=== PATIENT | female | born 1990 | race Caucasian/White ===

== ENCOUNTER 2019-12-11 18:35 | Emergency (ER) | payer OTHER ==
[2019-12-11] MEDS ORDERED: PANTOPRAZOLE 40 MG/10 ML VIAL IVP STA (18:54)
[2019-12-11] MEDS ORDERED: ONDANSETRON 4 MG/2 ML VIAL IVP STA (18:54)
[2019-12-11] MEDS ORDERED: SODIUM CHLORIDE 0.9% 1,000 ML IV STA (18:54)
--- NOTE | 2019-12-11 18:58 | ED ---
General Adult HPI - General Chief complaint: GI Bleed Stated complaint: Vomiting blood Time Seen by Provider: 12/11/19 18:45 Source: patient Mode of arrival: ambulatory Limitations: no limitations - History of Present Illness Initial comments: 28-year-old female patient with past medical history significant for alcohol abuse and acid reflux presents to the emergency department today for evaluation of possible upper GI bleed. Patient states that for the last 3 days she has been having frequent vomiting. States initially she was vomiting bright red b lood which turned to coffee-ground emesis yesterday. Patient states today she has vomited but is only been yellow with no bloody emesis present. States she is having some mid epigastric discomfort. Denies any hematochezia or melena. Patient has been taking Protonix. Patient states that she did have an upper GI endoscopy a couple of years ago which showed no abnormalities. She denies any fever or chills. Denies any diarrhea. She denies taking any anticoagulants or antiplatelet medications. Patient denies any recent rash, cough, back pain, numbness, tingling, dizziness, weakness, hematuria, dysuria, urinary urgency, urinary frequency, headache, visual changes, or any other complaints. - Related Data Previous Rx's Medication Instructions Recorded Ondansetron [Zofran ODT] 4 mg PO Q8HR PRN #20 tab 12/11/19 Allergies Allergy/AdvReac Type Severity Reaction Status Date / Time No Known Allergies Allergy Verified 12/11/19 18:40 Review of Systems ROS Statement: Those systems with pertinent positive or pertinent negative responses have been documented in the HPI. ROS Other: All systems not noted in ROS Statement are negative. Past Medical History Past Medical History: GERD/Reflux History of Any Multi-Drug Resistant Organisms: None Reported Past Surgical History: Section Past Psychological History: Anxiety, Depression Smoking Status: Current every day smoker Past Alcohol Use History: Abuse, Daily, Heavy Past Drug Use History: Marijuana General Exam Limitations: no limitations General appearance: alert, in no apparent distress, other (Physical well- developed, well-nourished adult female patient in no acute distress. Vital signs upon presentation are temperature 98.3F, pulse 87, respirations 18, blood pressure 133/90, pulse ox 98% on room air) Eye exam: Present: normal appearance, PERRL, EOMI. Absent: scleral icterus, conjunctival injection, periorbital swelling ENT exam: Present: normal exam, normal oropharynx, mucous membranes moist Respiratory exam: Present: normal lung sounds bilaterally. Absent: respiratory distress, wheezes, rales, rhonchi, stridor Cardiovascular Exam: Present: regular rate, normal rhythm, normal heart sounds. Absent: systolic murmur, diastolic murmur, rubs, gallop, clicks GI/Abdominal exam: Present: soft, tenderness (Left lower quadrant tenderness), normal bowel sounds. Absent: distended, guarding, rebound, rigid Neurological exam: Present: alert, oriented X3, CN II-XII intact Psychiatric exam: Present: normal affect, normal mood Skin exam: Present: warm, dry, intact, normal color. Absent: rash Course Vital Signs 12/11/19 12/11/19 18:40 20:00 Temperature 98.3 F 99.9 F H Pulse Rate 87 88 Respiratory 18 16 Rate Blood Pressure 133/90 124/95 O2 Sat by Pulse 98 Oximetry Medical Decision Making - Medical Decision Making 28-year-old female patient presents to the emergency department today for evaluation of vomiting blood. Physical examination reveals mild midepigastric tenderness. Remainder of abdomen is nontender. Labs reviewed and are unremarkable. Blood cell count are normal. Patient reports that today she has only had bilious emesis with no presence of coffee grounds or bright red blood. Denies any dizziness or weakness. Presence of blood over the last 2 days is most likely from a small tear from retching. We did discuss continuing her home protonix. She is instructed to follow-up with the GI specialist for further evaluation as soon as possible for upper GI endoscopy. Return parameters were discussed in detail. She verbalizes understanding and agrees with this plan - Lab Data Result diagrams: 12/11/19 19:00 12/11/19 19:00 Lab Results 12/11/19 12/11/19 12/11/19 Range/Units 18:45 19:00 19:00 WBC 12.2 H (3.8-10.6) k/uL RBC 4.88 (3.80-5.40) m/uL Hgb 15.1 (11.4-16.0) gm/dL Hct 45.6 (34.0-46.0) % MCV 93.4 (80.0-100.0) fL MCH 30.9 (25.0-35.0) pg MCHC 33.1 (31.0-37.0) g/dL RDW 15.0 (11.5-15.5) % Plt Count 214 (150-450) k/uL Neutrophils % 70 % Lymphocytes % 24 % Monocytes % 3 % Eosinophils % 1 % Basophils % 0 % Neutrophils # 8.5 H (1.3-7.7) k/uL Lymphocytes # 3.0 (1.0-4.8) k/uL Monocytes # 0.4 (0-1.0) k/uL Eosinophils # 0.1 (0-0.7) k/uL Basophils # 0.0 (0-0.2) k/uL PT 11.4 (9.0-12.0) sec INR 1.1 (<1.2) APTT 26.3 (22.0-30.0) sec Sodium (137-145) mmol/L Potassium (3.5-5.1) mmol/L Chloride (98-107) mmol/L Carbon Dioxide (22-30) mmol/L Anion Gap mmol/L BUN (7-17) mg/dL Creatinine (0.52-1.04) mg/dL Est GFR (CKD-EPI)AfAm (>60 ml/min/1.73 sqM) Est GFR (CKD-EPI)NonAf (>60 ml/min/1.73 sqM) Glucose (74-99) mg/dL Calcium (8.4-10.2) mg/dL Total Bilirubin (0.2-1.3) mg/dL AST (14-36) U/L ALT (4-34) U/L Alkaline Phosphatase (38-126) U/L Troponin I (0.000-0.034) ng/mL Total Protein (6.3-8.2) g/dL Albumin (3.5-5.0) g/dL Lipase (23-300) U/L Urine HCG, Qual Not Detected (Not Detectd) 12/11/19 12/11/19 Range/Units 19:00 19:00 WBC (3.8-10.6) k/uL RBC (3.80-5.40) m/uL Hgb (11.4-16.0) gm/dL Hct (34.0-46.0) % MCV (80.0-100.0) fL MCH (25.0-35.0) pg MCHC (31.0-37.0) g/dL RDW (11.5-15.5) % Plt Count (150-450) k/uL Neutrophils % % Lymphocytes % % Monocytes % % Eosinophils % % Basophils % % Neutrophils # (1.3-7.7) k/uL Lymphocytes # (1.0-4.8) k/uL Monocytes # (0-1.0) k/uL Eosinophils # (0-0.7) k/uL Basophils # (0-0.2) k/uL PT (9.0-12.0) sec INR (<1.2) APTT (22.0-30.0) sec Sodium 134 L (137-145) mmol/L Potassium 3.9 (3.5-5.1) mmol/L Chloride 100 (98-107) mmol/L Carbon Dioxide 25 (22-30) mmol/L Anion Gap 9 mmol/L BUN 16 (7-17) mg/dL Creatinine 0.57 (0.52-1.04) mg/dL Est GFR (CKD-EPI)AfAm >90 (>60 ml/min/1.73 sqM) Est GFR (CKD-EPI)NonAf >90 (>60 ml/min/1.73 sqM) Glucose 86 (74-99) mg/dL Calcium 9.0 (8.4-10.2) mg/dL Total Bilirubin 1.1 (0.2-1.3) mg/dL AST 27 (14-36) U/L ALT 25 (4-34) U/L Alkaline Phosphatase 83 (38-126) U/L Troponin I <0.012 (0.000-0.034) ng/mL Total Protein 7.3 (6.3-8.2) g/dL Albumin 4.3 (3.5-5.0) g/dL Lipase 161 (23-300) U/L Urine HCG, Qual (Not Detectd) Disposition Clinical Impression: Upper GI bleed Disposition: HOME SELF-CARE Condition: Good Instructions (If sedation given, give patient instructions): Gastrointestinal Bleeding (ED) Additional Instructions: Continue taking your Protonix. Take Zofran as needed for nausea and vomiting. Follow-up with the GI specialist for further evaluation and upper endoscopy scope. Return to the emergency department immediately for any new, worsening, or concerning symptoms. Prescriptions: Ondansetron [Zofran ODT] 4 mg PO Q8HR PRN #20 tab PRN Reason: Nausea Is patient prescribed a controlled substance at d/c from ED?: No Referrals: None,Stated [Primary Care Provider] - 1-2 days Time of Disposition: 20:06
[2019-12-11 19:19] LABS: Basophils % (A) 0 %; Eosinophils # (A) 0.1 k/uL (0-0.7); Eosinophils % (A) 1 %; HCT 45.6 % (34.0-46.0); HGB 15.1 gm/dL (11.4-16.0); Lymphocytes % (A) 24 %; MCH 30.9 pg (25.0-35.0); MCHC 33.1 g/dL (31.0-37.0); MCV 93.4 fL (80.0-100.0); Mean Platelet Volume 7.2; Monocytes # (A) 0.4 k/uL (0-1.0); Monocytes % (A) 3 %; Neutrophils # (A) 8.5 k/uL (1.3-7.7); Neutrophils % (A) 70 %; Platelet Count 214 k/uL (150-450); RBC 4.88 m/uL (3.80-5.40); WBC 12.2 k/uL (3.8-10.6)
[2019-12-11 19:28] LABS: ALT 25 U/L (4-34); AST 27 U/L (14-36); African American GFR (CKD) >90 (>60 ml/min/1.73 sqM); Albumin 4.3 g/dL (3.5-5.0); Alkaline Phosphatase 83 U/L (38-126); Anion Gap 9 mmol/L; Blood Urea Nitrogen 16 mg/dL (7-17); Carbon Dioxide 25 mmol/L (22-30); Chloride 100 mmol/L (98-107); Glucose 86 mg/dL (74-99); INR 1.1 (<1.2); Non-African American GFR(CKD) >90 (>60 ml/min/1.73 sqM); Partial Thromboplastin Time 26.3 sec (22.0-30.0); Potassium 3.9 mmol/L (3.5-5.1); Prothrombin Time 11.4 sec (9.0-12.0); Sodium 134 mmol/L (137-145); Total Bilirubin 1.1 mg/dL (0.2-1.3); Total Protein 7.3 g/dL (6.3-8.2)
--- NOTE | 2019-12-11 19:56 | XR ---
EXAMINATION TYPE: XR KUB DATE OF EXAM: 12/11/2019 COMPARISON: NONE HISTORY: Pain TECHNIQUE: 2 views FINDINGS: 2 views upright show no sign of intestinal obstruction or pneumoperitoneum. Fecal pattern i s normal. Lung bases are clear. There are no pathologic calcifications. IMPRESSION: Nonacute abdomen.
[2019-12-11 20:14] VITALS: BP 124/95; PULSE 88; RESP 16; TEMP 99.9
== END 2019-12-11 20:39 | disposition home or self-care (01) ==
LOC: EC 18:35
DX: K92.2 Gastrointestinal hemorrhage, unspecified (principal); R11.14 Bilious vomiting; K21.9 Gastro-esophageal reflux disease without esophagitis; F17.200 Nicotine dependence, unspecified, uncomplicated; Z79.899 Other long term (current) drug therapy
CPT/HCPCS: 36415; 80053; 83690; 84484; 85025; 85610; 85730; 81025; 74018; 99285; 96374; 96375; 96361; J2405; C9113

== ENCOUNTER 2020-10-09 12:18 | Emergency (ER) | payer OTHER ==
[2020-10-09 12:26] VITALS: TEMP 97.6
[2020-10-09] MEDS ORDERED: ACETAMINOPHEN TAB 500 MG TAB PO STA (12:36)
[2020-10-09] MEDS ORDERED: DIPH,PERTUS(ACELL)TETVAC-LF 0.5 ML VIAL IM ONE (12:36)
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
[2020-10-09 16:41] VITALS: BP 122/74; PULSE 72; RESP 18
== END 2020-10-09 16:41 | disposition home or self-care (01) ==
LOC: EC 12:18
DX: S60.512A Abrasion of left hand, initial encounter (principal); R91.1 Solitary pulmonary nodule; K21.9 Gastro-esophageal reflux disease without esophagitis; F41.9 Anxiety disorder, unspecified; F32.9 Major depressive disorder, single episode, unspecified; Z23 Encounter for immunization; F17.200 Nicotine dependence, unspecified, uncomplicated; Z79.899 Other long term (current) drug therapy; V44.5XXA Car driver injured in collision with heavy transport vehicle or bus in traffic accident, initial encounter; Y93.89 Activity, other specified; Y92.410 Unspecified street and highway as the place of occurrence of the external cause
CPT/HCPCS: 70450; 71045; 72125; 72170; 82075; 90471; 90715; 99284

== ENCOUNTER 2022-07-26 12:30 | Emergency (ER) | payer OTHER ==
[2022-07-26 13:05] VITALS: RESP 18; TEMP 98.1
[2022-07-26 13:36] LABS: Appearance,Urine Cloudy (Clear); Bilirubin,Urine Negative (Negative); Blood,Urine Large (Negative); Color,Urine Yellow; Glucose,Urine (UA) Negative (Negative); Ketones,Urine Negative (Negative); Leukocyte Esterase,Urine Large (Negative); Mucus,Urine Many /hpf; Nitrite,Urine Negative (Negative); Protein,Urine Trace (Negative); RBC,Urine 2 /hpf (0-5); Specific Gravity,Urine 1.017 (1.001-1.035); Squamous Epithelial Cell,Urine 13 /hpf (0-4); Urobilinogen,Urine <2.0 mg/dL (<2.0); WBC,Urine 21 /hpf (0-5)
--- NOTE | 2022-07-26 16:26 | ED ---
Female Urogenital HPI - General Chief complaint: Vaginal Bleeding Stated complaint: newly preg, bleeding/cramping Time Seen by Provider: 07/26/22 15:25 Source: patient, RN notes reviewed Mode of arrival: ambulatory Limitations: no limitations - History of Present Illness Initial comments: This is a 31-year-old female who presents to the emergency department for vaginal bleeding and cramping. Symptoms started 1-2 days ago. Believes that she is approximately 7 weeks and she is . She has not yet established with an fire apparatus sprinkler inspector due to the wait in this area, however her primary care provider did send an official referral to Dr. Kendall a couple of days ago in an attempt to speed up this process. States that she had a miscarriage several years ago at around 7 weeks and after that she did have a successful , and that child is now 4 years old. Denies any nausea or vomiting. Denies any fevers, chills, sore throat, cough, dyspnea, chest pain, palpitations, nausea, vomiting, diarrhea, back pain, or headaches. MD Complaint: vaginal bleeding, pelvic pain Onset/Timin -: days(s) Last Menstrual Period: 05/29/22 Patient : Yes Number of weeks : 7 - Related Data Home Medications Medication Instructions Recorded Confirmed Escitalopram [Lexapro] 20 mg PO DAILY 10/09/20 10/09/20 Pantoprazole Sodium [Protonix] 40 mg PO DAILY 10/09/20 10/09/20 Previous Rx's Medication Instructions Recorded Cephalexin [Keflex] 500 mg PO Q8HR 5 Days #15 cap 07/26/22 Doxylamine Succinate/Vit B6 1 each PO Q6H PRN #20 tab 07/26/22 [Doxylamine-Pyridoxine 10-10 mg] Ondansetron Odt [Zofran Odt] 4 mg PO Q8HR PRN #20 tab 07/26/22 Allergies Allergy/AdvReac Type Severity Reaction Status Date / Time No Known Allergies Allergy Verified 07/26/22 13:04 Review of Systems ROS Statement: Those systems with pertinent positive or pertinent negative responses have been documented in the HPI. ROS Other: All systems not noted in ROS Statement are negative. Past Medical History Past Medical History: GERD/Reflux History of Any Multi-Drug Resistant Organisms: None Reported Past Surgical History: Appendectomy, Section Past Psychological History: Anxiety, Depression Smoking Status: Current every day smoker, Vaper Past Alcohol Use History: None Reported Past Drug Use History: Marijuana General Exam Limitations: no limitations General appearance: alert, in no apparent distress Head exam: Present: atraumatic, normocephalic, normal inspection Respiratory exam: Present: normal lung sounds bilaterally. Absent: respiratory distress, wheezes, rales, rhonchi, stridor Cardiovascular Exam: Present: regular rate, normal rhythm, normal heart sounds. Absent: systolic murmur, diastolic murmur, rubs, gallop, clicks GI/Abdominal exam: Present: normal bowel sounds Neurological exam: Present: alert, oriented X3, CN II-XII intact Psychiatric exam: Present: normal affect, normal mood Skin exam: Present: warm, dry, intact, normal color. Absent: rash Course Vital Signs 07/26/22 07/26/22 12:59 18:01 Temperature 98.1 F Pulse Rate 105 H 98 Respiratory 18 18 Rate Blood Pressure 107/68 110/70 O2 Sat by Pulse 99 99 Oximetry Medical Decision Making - Medical Decision Making This is a 31-year-old female who presents to the emergency department for vaginal bleeding and pelvic pain. Lab work was nonactionable. Obstetrics ul trasound obtained revealing an anechoic intrauterine cystic structure without evidence for yolk sac or pole. This may be related to an early gestational sac, however ectopic and abnormal intrauterine cannot be ruled out. She is Rh+ and no RhoGAM is indicated. Given that the patient does have some white blood cells in her urine, she'll be treated for bacteriuria. Prescription for 5 day course of Keflex provided. She is also complaining of morning sickness, and requested nausea medication. Prescription for generic Diclegis provided, advised that this can be expensive, however it is found to be one of the safer medications for nausea in . She was also given a prescription for Zofran, advised that this is a category B medication, and that there are no direct links to harm, however additional testing is needed. Patient expresses understanding and wishes to proceed with the medication. Advised that she can brass pickler both prescriptions, however if the Diclegis is too expensive, she can just brass pickler the Zofran. Advised she contact Dr. Kendall's office in the morning to evaluate the status of her referral. Reminded her to begin taking a vitamin and to only take Tylenol for any pain, avoiding [id number] anti-inflammatories such as ibuprofen. Return precautions reviewed in depth, the patient is instructed to return to the emergency department with any new, worsening, or concerning symptoms. Patient verbalized understanding. This case was discussed in detail with the attending ED physician. Presentation, findings, and treatment plan discussed in detail as well. - Lab Data Result diagrams: 07/26/22 16:55 07/26/22 16:55 Lab Results 07/26/22 07/26/22 07/26/22 Range/Units 13:13 16:53 16:55 WBC 9.8 (3.8-10.6) k/uL RBC 4.95 (3.80-5.40) m/uL Hgb 15.2 (11.4-16.0) gm/dL Hct 44.6 (34.0-46.0) % MCV 90.2 (80.0-100.0) fL MCH 30.6 (25.0-35.0) pg MCHC 34.0 (31.0-37.0) g/dL RDW 12.6 (11.5-15.5) % Plt Count 208 (150-450) k/uL MPV 7.3 Neutrophils % 73 % Lymphocytes % 21 % Monocytes % 3 % Eosinophils % 2 % Basophils % 0 % Neutrophils # 7.2 (1.3-7.7) k/uL Lymphocytes # 2.1 (1.0-4.8) k/uL Monocytes # 0.3 (0-1.0) k/uL Eosinophils # 0.2 (0-0.7) k/uL Basophils # 0.0 (0-0.2) k/uL Sodium (137-145) mmol/L Potassium (3.5-5.1) mmol/L Chloride (98-107) mmol/L Carbon Dioxide (22-30) mmol/L Anion Gap mmol/L BUN (7-17) mg/dL Creatinine (0.52-1.04) mg/dL Est GFR (CKD-EPI)AfAm (>60 ml/min/1.73 sqM) Est GFR (CKD-EPI)NonAf (>60 ml/min/1.73 sqM) Glucose (74-99) mg/dL Calcium (8.4-10.2) mg/dL Total Bilirubin (0.2-1.3) mg/dL AST (14-36) U/L ALT (4-34) U/L Alkaline Phosphatase (38-126) U/L Total Protein (6.3-8.2) g/dL Albumin (3.5-5.0) g/dL HCG, Quant mIU/mL Urine Color Yellow Urine Appearance Cloudy H (Clear) Urine pH 6.0 (5.0-8.0) Ur Specific [place] 1.017 (1.001-1.035) Urine Protein Trace H (Negative) Urine Glucose (UA) Negative (Negative) Urine Ketones Negative (Negative) Urine Blood Large H (Negative) Urine Nitrite Negative (Negative) Urine Bilirubin Negative (Negative) Urine Urobilinogen <2.0 (<2.0) mg/dL Ur Leukocyte Esterase Large H (Negative) Urine RBC 2 (0-5) /hpf Urine WBC 21 H (0-5) /hpf Ur Squamous Epith Cells 13 H (0-4) /hpf Urine Mucus Many H (None) /hpf Blood Type A Positive Blood Type Recheck No Previous Record Bld Type Recheck Status [facility] ONLY 07/26/22 Range/Units 16:55 WBC (3.8-10.6) k/uL RBC (3.80-5.40) m/uL Hgb (11.4-16.0) gm/dL Hct (34.0-46.0) % MCV (80.0-100.0) fL MCH (25.0-35.0) pg MCHC (31.0-37.0) g/dL RDW (11.5-15.5) % Plt Count (150-450) k/uL MPV Neutrophils % % Lymphocytes % % Monocytes % % Eosinophils % % Basophils % % Neutrophils # (1.3-7.7) k/uL Lymphocytes # (1.0-4.8) k/uL Monocytes # (0-1.0) k/uL Eosinophils # (0-0.7) k/uL Basophils # (0-0.2) k/uL Sodium 139 (137-145) mmol/L Potassium 3.9 (3.5-5.1) mmol/L Chloride 105 (98-107) mmol/L Carbon Dioxide 24 (22-30) mmol/L Anion Gap 10 mmol/L BUN 7 (7-17) mg/dL Creatinine 0.52 (0.52-1.04) mg/dL Est GFR (CKD-EPI)AfAm >90 (>60 ml/min/1.73 sqM) Est GFR (CKD-EPI)NonAf >90 (>60 ml/min/1.73 sqM) Glucose 84 (74-99) mg/dL Calcium 9.2 (8.4-10.2) mg/dL Total Bilirubin 0.7 (0.2-1.3) mg/dL AST 21 (14-36) U/L ALT 20 (4-34) U/L Alkaline Phosphatase 76 (38-126) U/L Total Protein 6.7 (6.3-8.2) g/dL Albumin 4.2 (3.5-5.0) g/dL HCG, Quant 8272.4 mIU/mL Urine Color Urine Appearance (Clear) Urine pH (5.0-8.0) Ur Specific [place] (1.001-1.035) Urine Protein (Negative) Urine Glucose (UA) (Negative) Urine Ketones (Negative) Urine Blood (Negative) Urine Nitrite (Negative) Urine Bilirubin (Negative) Urine Urobilinogen (<2.0) mg/dL Ur Leukocyte Esterase (Negative) Urine RBC (0-5) /hpf Urine WBC (0-5) /hpf Ur Squamous Epith Cells (0-4) /hpf Urine Mucus (None) /hpf Blood Type Blood Type Recheck Bld Type Recheck Status - Radiology Data Radiology results: report reviewed, image reviewed Disposition Clinical Impression: Vaginal bleeding during Disposition: HOME SELF-CARE Instructions (If sedation given, give patient instructions): Nausea and Vomiting in (ED), at 7 to 10 Weeks (ED) Additional Instructions: Return to the emergency department with any new, worsening, or concerning symptoms. Take the Keflex as prescribed for 5 days. You can brass pickler both the Diclegis (Doxylamine succinate/pyridoxine) and Zofran, however if the Diclegis is too expensive, just pickup the Zofran. These can be used as needed for nausea and vomiting. Make sure you're taking a vitamin and only take Tylenol for any pain, do not take ibuprofen or other faop-ehd-vireolk anti- inflammatories. Contact Dr. Kendall's office to follow-up on the referral and become established as soon as possible. Follow up with your primary care provider in 1-2 days. Prescriptions: Doxylamine Succinate/Vit B6 [Doxylamine-Pyridoxine 10-10 mg] 1 each PO Q6H PRN #20 tab PRN Reason: Nausea And Vomiting Cephalexin [Keflex] 500 mg PO Q8HR 5 Days #15 cap Ondansetron Odt [Zofran Odt] 4 mg PO Q8HR PRN #20 tab PRN Reason: Nausea And Vomiting Is patient prescribed a controlled substance at d/c from ED?: No Referrals: Alistair Charles MD [Primary Care Provider] - 1-2 days
--- NOTE | 2022-07-26 17:10 | US ---
EXAMINATION TYPE: Transabdominal DATE OF EXAM: 07/26/2022 4:46 PM COMPARISON: NONE CLINICAL HISTORY: Abdominal pain and cramping in . Abdominal pain and vaginal bleeding. G3 P 1 A1. Hx 1 miscarriage and 1 C section. EXAM PERFORMED: Transvaginal (TV) and Transabdominal (TA) EXAM MEASUREMENTS: GESTATIONAL AGE / DATING Physician Established: Not yet established Dates by LMP: (8 weeks/1 day) EDC: 03/06/2023 Dates by First Scan: This is first scan Dates by Current Scan for: ( 6 weeks/0 days) EDC: 03/21/2023 by gestational sac. MATERNAL ANATOMY Uterus: 9.5 x 5.3 x 4.2 cm. Anteverted. Heterogeneous. Right Ovary: Seen TA only. Anechoic area seen: 1.6 x 1.4 x 1.0 cm. Left Ovary: Not seen Post CDS / Adnexa: Fluid seen in CDS. Presence of free fluid: Yes in cul de sac. Presence of corpus luteal cyst: Possibly within the right ovary, anechoic area seen as mentioned abov e. Presence of subchorionic bleed: Hypoechoic area seen superior to gestational sac: 1.1 x 0.8 x 0.4 cm. Hypoechoic area seen inferior to gestational sac: 0.6 x 1.4 x 1.0 cm. GESTATION / SURVEY MSD: 1.21 cm (6 weeks/0 days) IUP: Gestational sac seen within the mid uterus at this time. Date of LMP: 05/30/2022 Beta HcG (if available): Not available IMPRESSION: Anechoic intrauterine cystic structure without evidence for yolk sac or pole at this time. This is thought to represent an early gestational sac with a positive beta hCG, however ectopic and abnormal intrauterine cannot be ruled out based on this exam alone. Follow-up with pel dominick ultrasound in 7-10 days and serial beta-hCG studies are recommended to en sure further developmen t of the fetus. .
[2022-07-26 17:11] LABS: Basophils % (A) 0 %; Eosinophils # (A) 0.2 k/uL (0-0.7); Eosinophils % (A) 2 %; HCT 44.6 % (34.0-46.0); HGB 15.2 gm/dL (11.4-16.0); Lymphocytes # (A) 2.1 k/uL (1.0-4.8); Lymphocytes % (A) 21 %; MCH 30.6 pg (25.0-35.0); MCV 90.2 fL (80.0-100.0); Mean Platelet Volume 7.3; Monocytes # (A) 0.3 k/uL (0-1.0); Monocytes % (A) 3 %; Neutrophils # (A) 7.2 k/uL (1.3-7.7); Neutrophils % (A) 73 %; Platelet Count 208 k/uL (150-450); RBC 4.95 m/uL (3.80-5.40); RDW 12.6 % (11.5-15.5); WBC 9.8 k/uL (3.8-10.6)
[2022-07-26 17:26] LABS: ALT 20 U/L (4-34); AST 21 U/L (14-36); African American GFR (CKD) >90 (>60 ml/min/1.73 sqM); Albumin 4.2 g/dL (3.5-5.0); Alkaline Phosphatase 76 U/L (38-126); Anion Gap 10 mmol/L; Blood Urea Nitrogen 7 mg/dL (7-17); Calcium 9.2 mg/dL (8.4-10.2); Carbon Dioxide 24 mmol/L (22-30); Chloride 105 mmol/L (98-107); Glucose 84 mg/dL (74-99); Non-African American GFR(CKD) >90 (>60 ml/min/1.73 sqM); Potassium 3.9 mmol/L (3.5-5.1); Sodium 139 mmol/L (137-145); Total Bilirubin 0.7 mg/dL (0.2-1.3); Total Protein 6.7 g/dL (6.3-8.2)
[2022-07-26 17:43] LABS: HCG,Quantitative Serum 8272.4 mIU/mL
[2022-07-26 18:05] VITALS: BP 110/70; PULSE 98
== END 2022-07-26 18:05 | disposition home or self-care (01) ==
LOC: EC 12:30
DX: O46.91 Antepartum hemorrhage, unspecified, first trimester (principal); Z3A.01 Less than 8 weeks gestation of pregnancy; K21.9 Gastro-esophageal reflux disease without esophagitis; F17.200 Nicotine dependence, unspecified, uncomplicated; F12.90 Cannabis use, unspecified, uncomplicated; F41.9 Anxiety disorder, unspecified; F32.A Depression, unspecified; Z79.83 Long term (current) use of bisphosphonates; Z79.899 Other long term (current) drug therapy
CPT/HCPCS: 36415; 76801; 76817; 80053; 81001; 84702; 85025; 86900; 86901; 87086; 99284

== ENCOUNTER 2022-07-27 19:35 | Observation (INO) | payer OTHER ==
[2022-07-27] MEDS ORDERED: SODIUM CHLORIDE 0.9% 1,000 ML IV STA (19:45)
[2022-07-27] MEDS ORDERED: MORPHINE SULFATE 4 MG/ML SYRINGE IV STA (19:53)
--- NOTE | 2022-07-27 19:56 | ED ---
General Adult HPI - General Chief complaint: Vaginal Bleeding Stated complaint: Vaginal Bleeding Time Seen by Provider: 07/27/22 19:46 Source: EMS Mode of arrival: EMS Limitations: no limitations - History of Present Illness Initial comments: Dictation was produced using [employer] dictation software. please excuse any grammatical, word or spelling errors. Chief Complaint: 31-year-old female presents to emergency room for pelvic pain she is allegedly 6 weeks History of Present Illness: She's 31-year-old female she is allegedly 6 weeks . She is here today for 1 day of severe pelvic pain. Patient was seen here in emergency department yesterday for vaginal bleeding. At that time she had a beta Quant of approximately 8000. She had a ultrasound that showed anechoic intrauterine cystic structure without evidence for yolks sac or pole. Patient states that her pain is severe rated a 12 out of 10. Nonradia ting. Patient also having vaginal bleeding. The ROS documented in this emergency department record has been reviewed and confirmed by me. Those systems with pertinent positive or negative responses have been documented in the HPI. All other systems are other negative and/or noncontributory. PHYSICAL EXAM: General Impression: Alert and oriented x3, acute distress secondary to pain HEENT: Normocephalic atraumatic, extra-ocular movements intact, pupils equal and reactive to light bilaterally, mucous membranes moist. Cardiovascular: Heart regular rate and rhythm Chest: Able to complete full sentences, no retractions, no tachypnea Abdomen: abdomen soft, non-tender, non-distended, no organomegaly Musculoskeletal: Pulses present and equal in all extremities, no peripheral edema Motor: no focal deficits noted Neurological: CN II-XII grossly intact, no focal motor or sensory deficits noted Skin: Intact with no visualized rashes Psych: Normal affect and mood ED course: 31-year-old female presents emergency department for suspicion of ectopic . Spoke with Dr. Crooks who is on-call for INTERLOCKING AND SIGNAL MECHANIC at 8:00 PM. Case was discussed in detail Dr. Meneses and that her clinical presentation was highly suspicious for ectopic . Vital signs upon arrival shows blood pressure 145/96, rest of vital signs within acceptable limits. Dr. Meneses stated that he will come and evaluate the patient at the bedside. In the meantime patient given IV fluids. Patient's blood pressure is stable. No indication for blood products at this time. Patient evaluated at the bedside by on-call INTERLOCKING AND SIGNAL MECHANIC, Dr. Meneses. He is planning to take patient to operating room for a dilatation and curettage after evaluating the patient and ultrasound. I was notified of this plan at 8:50 PM. - Related Data Home Medications Medication Instructions Recorded Confirmed Escitalopram [Lexapro] 20 mg PO DAILY 10/09/20 10/09/20 Pantoprazole Sodium [Protonix] 40 mg PO DAILY 10/09/20 10/09/20 Previous Rx's Medication Instructions Recorded Cephalexin [Keflex] 500 mg PO Q8HR 5 Days #15 cap 07/26/22 Doxylamine Succinate/Vit B6 1 each PO Q6H PRN #20 tab 07/26/22 [Doxylamine-Pyridoxine 10-10 mg] Ondansetron Odt [Zofran Odt] 4 mg PO Q8HR PRN #20 tab 07/26/22 Allergies Allergy/AdvReac Type Severity Reaction Status Date / Time No Known Allergies Allergy Verified 07/26/22 13:04 Review of Systems ROS Statement: Those systems with pertinent positive or pertinent negative responses have been documented in the HPI. ROS Other: All systems not noted in ROS Statement are negative. Past Medical History Past Medical History: GERD/Reflux History of Any Multi-Drug Resistant Organisms: None Reported Past Surgical History: Appendectomy, Section Past Psychological History: Anxiety, Depression Smoking Status: Current every day smoker, Vaper Past Alcohol Use History: None Reported Past Drug Use History: Marijuana General Exam Limitations: no limitations Course Vital Signs 07/27/22 07/27/22 07/27/22 19:37 19:42 19:58 Temperature 98.2 F 98 F Pulse Rate 92 94 87 Respiratory 20 20 22 Rate Blood Pressure 145/96 O2 Sat by Pulse 100 100 100 Oximetry 07/27/22 07/27/22 07/27/22 20:10 20:19 20:25 Temperature Pulse Rate 84 87 77 Respiratory 20 20 20 Rate Blood Pressure 132/112 121/90 119/80 O2 Sat by Pulse 100 98 96 Oximetry Medical Decision Making - Lab Data Result diagrams: 07/27/22 20:05 07/27/22 20:05 Lab Results 07/27/22 07/27/22 07/27/22 Range/Units 20:05 20:05 20:05 WBC 10.8 H (3.8-10.6) k/uL RBC 4.79 (3.80-5.40) m/uL Hgb 14.8 (11.4-16.0) gm/dL Hct 42.6 (34.0-46.0) % MCV 89.1 (80.0-100.0) fL MCH 30.9 (25.0-35.0) pg MCHC 34.7 (31.0-37.0) g/dL RDW 12.5 (11.5-15.5) % Plt Count 227 (150-450) k/uL MPV 7.4 Neutrophils % 66 % Lymphocytes % 26 % Monocytes % 4 % Eosinophils % 2 % Basophils % 0 % Neutrophils # 7.1 (1.3-7.7) k/uL Lymphocytes # 2.8 (1.0-4.8) k/uL Monocytes # 0.4 (0-1.0) k/uL Eosinophils # 0.2 (0-0.7) k/uL Basophils # 0.0 (0-0.2) k/uL PT 10.9 (9.0-12.0) sec INR 1.0 (<1.2) APTT 25.6 (22.0-30.0) sec Sodium 141 (137-145) mmol/L Potassium 3.4 L (3.5-5.1) mmol/L Chloride 105 (98-107) mmol/L Carbon Dioxide 22 (22-30) mmol/L Anion Gap 14 mmol/L BUN 10 (7-17) mg/dL Creatinine 0.49 L (0.52-1.04) mg/dL Est GFR (CKD-EPI)AfAm >90 (>60 ml/min/1.73 sqM) Est GFR (CKD-EPI)NonAf >90 (>60 ml/min/1.73 sqM) Glucose 103 H (74-99) mg/dL Calcium 9.4 (8.4-10.2) mg/dL HCG, Quant 3711.0 mIU/mL Disposition Clinical Impression: Pelvic pain affecting , Miscarriage Disposition: ADMITTED IP TO THIS [facility] Condition: Serious Referrals: Alistair Charles MD [Primary Care Provider] - 1-2 days Decision Time: 20:55
[2022-07-27] MEDS ORDERED: MORPHINE SULFATE 4 MG/ML SYRINGE IVP STA ×2 (20:06→20:15)
[2022-07-27] MEDS ORDERED: METOCLOPRAMIDE 5 MG/ML 2 ML VIAL IVP STA (20:09)
[2022-07-27 20:24] LABS: Basophils % (A) 0 %; Eosinophils # (A) 0.2 k/uL (0-0.7); Eosinophils % (A) 2 %; HCT 42.6 % (34.0-46.0); HGB 14.8 gm/dL (11.4-16.0); Lymphocytes # (A) 2.8 k/uL (1.0-4.8); Lymphocytes % (A) 26 %; MCH 30.9 pg (25.0-35.0); MCHC 34.7 g/dL (31.0-37.0); MCV 89.1 fL (80.0-100.0); Mean Platelet Volume 7.4; Monocytes # (A) 0.4 k/uL (0-1.0); Monocytes % (A) 4 %; Neutrophils # (A) 7.1 k/uL (1.3-7.7); Neutrophils % (A) 66 %; Platelet Count 227 k/uL (150-450); RBC 4.79 m/uL (3.80-5.40); RDW 12.5 % (11.5-15.5); WBC 10.8 k/uL (3.8-10.6)
[2022-07-27 20:36] LABS: Partial Thromboplastin Time 25.6 sec (22.0-30.0); Prothrombin Time 10.9 sec (9.0-12.0)
[2022-07-27 20:37] LABS: African American GFR (CKD) >90 (>60 ml/min/1.73 sqM); Anion Gap 14 mmol/L; Blood Urea Nitrogen 10 mg/dL (7-17); Calcium 9.4 mg/dL (8.4-10.2); Carbon Dioxide 22 mmol/L (22-30); Chloride 105 mmol/L (98-107); Glucose 103 mg/dL (74-99); Non-African American GFR(CKD) >90 (>60 ml/min/1.73 sqM); Potassium 3.4 mmol/L (3.5-5.1); Sodium 141 mmol/L (137-145)
[2022-07-27] MEDS ORDERED: NALOXONE 0.4 MG/ML 1 ML VIAL IV PRN (20:55)
--- NOTE | 2022-07-27 21:04 | US ---
EXAMINATION TYPE: Transabdominal DATE OF EXAM: 07/27/2022 8:34 PM COMPARISON: 07/26/22 CLINICAL HISTORY: pelvic pain. Extreme pelvic pain that is getting worse along with heavy vaginal ble eding. , hx of miscarriage Limited due to pt being in excruciating pain during exam. EXAM PERFORMED: Transvaginal (TV) and Transabdominal (TA) EXAM MEASUREMENTS: GESTATIONAL AGE / DATING Physician Established: Not yet established Dates by Current Scan for: No IUP seen at this time MATERNAL ANATOMY Uterus: 8.9 x 4.9 x 4.3cm Right Ovary: Not vis Left Ovary: Not vis Post CDS / Adnexa: Bowel Presence of free fluid: No Presence of corpus luteal cyst: No Presence of subchorionic bleed: ? GESTATION / SURVEY Date of LMP: 05/30/22 Beta HcG (if available): N/A Complex nonvascular area seen in lower uterine segment measuring 3.5cm. Appears more complex compared to yesterday's exam. Patient was in extreme pain during exam. IMPRESSION: Cystic structure within the endometrium which remains no evidence for yolk sac or pole. Finding s not significantly changed from one day prior. Findings may relate to active spontaneous gi vesta clinical history. Correlation with beta-hCG is recommended. Close clinical follow-up and consulta tion with obstetrics is recommended.
--- NOTE | 2022-07-27 21:07 | P.HPOB ---
History of Present Illness H&P Date: 07/27/22 Chief Complaint: Vaginal bleeding and lower abdominal pain This patient is a 31-year-old 3 para 2 female estimated gestational age by last menstrual period approximately 8 weeks who presented to the emergency department this evening with complaints of profuse vaginal bleeding and lower abdominal pain. Patient apparently was here yesterday and had a transvaginal ul trasound that showed a true uterine gestational sac without pole or yolk sac and beta hCG at that time was 8200. Patient was sent home to follow-up with Dr. Kendall however returned this evening with increased vaginal bleeding and crampy lower abdominal pain. Repeat ultrasound shows heterogeneous enlarged area inside the uterus consistent with probable clot. At this time there is no evidence of free fluid in the abdomen in talking to the magnetic testing technician nor is there evidence of an ectopic . Pelvic exam shows profuse bright red vaginal bleeding. Review of Systems Genitourinary: Reports as per HPI, Reports Menstruation: Reports as per HPI Past Medical History Past Medical History: GERD/Reflux History of Any Multi-Drug Resistant Organisms: None Reported Past Surgical History: Appendectomy, Section Past Psychological History: Anxiety, Depression Smoking Status: Current every day smoker, Vaper Past Alcohol Use History: None Reported Past Drug Use History: Marijuana Medications and Allergies Home Medications Medication Instructions Recorded Confirmed Type Escitalopram [Lexapro] 20 mg PO DAILY 10/09/20 10/09/20 History Pantoprazole Sodium [Protonix] 40 mg PO DAILY 10/09/20 10/09/20 History Cephalexin [Keflex] 500 mg PO Q8HR 5 Days #15 cap 07/26/22 Rx Doxylamine Succinate/Vit B6 1 each PO Q6H PRN #20 tab 07/26/22 Rx [Doxylamine-Pyridoxine 10-10 mg] Ondansetron Odt [Zofran Odt] 4 mg PO Q8HR PRN #20 tab 07/26/22 Rx Allergies Allergy/AdvReac Type Severity Reaction Status Date / Time No Known Allergies Allergy Verified 07/26/22 13:04 Exam Vital Signs Temp Pulse Resp BP Pulse Ox 07/27/22 20:25 77 20 119/80 96 07/27/22 20:19 87 20 121/90 98 07/27/22 20:10 84 20 132/112 100 07/27/22 19:58 87 22 145/96 100 11/02/22 19:42 98 F 94 20 100 07/27/22 19:37 98.2 F 92 20 100 Intake and Output 07/27/22 07/27/22 07/27/22 06:59 14:59 22:59 Other: Weight 97.522 kg - OBG Physical Exam Vagina: Patient has profuse vaginal bleeding on speculum exam. Results Result Diagrams: 07/27/22 20:05 07/27/22 20:05 Abnormal Lab Results - Last 24 Hours (Table) 07/27/22 07/27/22 Range/Units 20:05 20:05 WBC 10.8 H (3.8-10.6) k/uL Potassium 3.4 L (3.5-5.1) mmol/L Creatinine 0.49 L (0.52-1.04) mg/dL Glucose 103 H (74-99) mg/dL Assessment and Plan Assessment: This is a 31-year-old with profuse vaginal bleeding and lower abdominal pain that is crampy and intermittent nature findings consistent with an incomplete . Due to the pain and bleeding plan is to proceed now with a suction D&C for treatment. I did explain this procedure to the patient and her partner. Understands the risk of the procedure including risks of infection, bleeding, possible uterine perforation. She also understands there is the possibility this is an ectopic of this time it does not appear to be the case. All the patient's questions have been answered and a written consent is obtained. (1) Incomplete Current Visit: Yes Status: Acute Code(s): O03.4 - INCOMPLETE SPONTANEOUS A BORTION WITHOUT COMPLICATION SNOMED Code(s): 617717091 (2) Vaginal bleeding during Current Visit: No Status: Acute Code(s): O46.90 - ANTEPARTUM HEMORRHAGE, UNSPECIFIED, UNSPECIFIED TRIMESTER SNOMED Code(s): 27939473206157246
[2022-07-27] MEDS ORDERED: MIDAZOLAM 2 MG/2 ML VIAL ONE (21:34)
[2022-07-27] MEDS ORDERED: KETOROLAC 15 MG/ML 1 ML VIAL ONE (21:34)
[2022-07-27] MEDS ORDERED: DEXAMETHASONE SOD PHOS (MDV) 100 MG/10 ML VIAL ONE (21:34)
[2022-07-27] MEDS ORDERED: fentaNYL (PF) 50 MCG/ML 2 ML AMP ONE (21:34)
[2022-07-27] MEDS ORDERED: ONDANSETRON 4 MG/2 ML VIAL ONE (21:34)
[2022-07-27] MEDS ORDERED: PROPOFOL 10 MG/ML 20 ML VIAL IV ONE (21:34)
[2022-07-27] MEDS ORDERED: SUCCINYLCHOLINE CHLORIDE 200 MG/10 ML VIAL IV ONE (21:34)
[2022-07-27] MEDS ORDERED: LIDOCAINE 2% INJ 20 MG/ML (2 ML VIAL) ONE (21:34)
[2022-07-27] MEDS ORDERED: IV FLUID CONTINUATION 1,000 ML IV ONE (21:38)
--- NOTE | 2022-07-27 22:17 | P.PN ---
Progress Note - Text Progress Note Date: 07/27/22 Please note that in the preoperative interview with the anesthesiologist patient did admit to taking Subutex. This most likely explains her extraordinary pain out of relation to the condition that she has.
--- NOTE | 2022-07-27 22:17 | P.OP ---
Date of Procedure: 07/27/22 Preoperative Diagnosis: Incomplete with vaginal bleeding Postoperative Diagnosis: Same Procedure(s) Performed: Suction D&C Anesthesia: KHUSHBU Surgeon: Shaun Meneses Estimated Blood Loss (ml): 75 Urine output (ml): 75 Pathology: other (Uterine contents) Condition: stable Disposition: PACU Indications for Procedure: Please see dictated H&P for intimate details of this patient's admission. In brief summary this is a 31-year-old 3 para 1 female estimated gestational age 8 weeks presented to the emergency department complaints of severe lower abdominal pain and vaginal bleeding. Clinical findings are consistent with a incomplete . I did discuss with the patient this surgery including risks of infection, bleeding, possible uterine perforation. All the patient's questions are answered and written consent is obtained. Operative Findings: This patient had a large amount of uterine contents consistent with retained products of conception Description of Procedure: This patient is taken to the operating room where she is laid in the supine position. She subsequently undergoes general endotracheal anesthesia without incident. With an adequate level of anesthesia she's placed in dorsal lithotomy position. She has a vaginal perineal prep and drape. Examination under anesthesia shows a mid position uterus slightly enlarged profuse bleeding. Bladder is drained for 75 mL of clear urine. Weighted speculum was placed in the posterior vagina. Anterior lip of the cervix was grabbed with an Allis clamp. Cervix is dilated enough to allow a 9 curved suction curette easily and the uterine cavity. Suction is applied and a large amount of tissue is removed including what appears to be gestational sac. With this done multiple passes are made to no further tissue was noted. A gentle but thorough 4 quadrant curettage is then done. Bleeding subsides at this time. This point the procedure is ended. The Allis clamp and weighted speculum removed. All counts are correct 3. There are no complications. Patient is awakened from anesthesia and taken recovery room satisfactory condition.
[2022-07-27] MEDS ORDERED: LACTATED RINGERS 1,000 ML IV SCH (23:04)
[2022-07-27] MEDS ORDERED: KETOROLAC 15 MG/ML 1 ML VIAL IVP PRN (23:04)
[2022-07-27] MEDS ORDERED: ONDANSETRON 4 MG/2 ML VIAL IVP PRN (23:04)
[2022-07-27] MEDS ORDERED: IBUPROFEN 600 MG TAB PO PRN (23:04)
[2022-07-27] MEDS ORDERED: Acetaminophen-Codeine 300-30mg TAB PO PRN (23:04)
[2022-07-28 05:23] VITALS: RESP 16
--- NOTE | 2022-07-28 06:06 | P.PN ---
Progress Note - Text Progress Note Date: 07/28/22 Postoperative day #1. Patient is resting without complaints and her pain is almost gone. Vital signs are stable she is afebrile. She's having normal bleeding. I impression this is a incomplete status post D&C and is now resolved status post this surgery. Plan is to discharge home this morning.
--- NOTE | 2022-07-28 06:17 | P.DS ---
Providers Date of admission: 07/27/22 20:55 Expected date of discharge: 07/28/22 Attending physician: Shaun Meneses Primary care physician: Alistair Charles - Discharge Diagnosis(es) (1) Incomplete Current Visit: Yes Status: Acute (2) Vaginal bleeding during Current Visit: No Status: Acute Hospital Course: Please see dictated emergency room note and H&P on this patient's admission. Brief summary this is a 31-year-old 3 para 1 female estimated gestation al age 8 weeks presented to emergency department with severe lower abdominal pain and vaginal bleeding. Evaluation is consistent with incomplete patient subsequently underwent a suction D&C. Please see dictated operative note. Postoperative patient did well felt be stable for discharge home follow up in 1 week. Procedures: Suction D&C Patient Condition at Discharge: Serious Plan - Discharge Summary New Discharge Prescriptions: New Ibuprofen [Motrin] 600 mg PO Q6HR PRN #30 tab PRN Reason: Mild Discomfort Acetaminophen-Codeine 300-30mg [Tylenol w/codeine #3] 2 each PO Q6HR PRN #20 tab PRN Reason: Severe Pain (Scale 7 To 10) No Action Escitalopram [Lexapro] 20 mg PO DAILY Pantoprazole Sodium [Protonix] 40 mg PO DAILY Ondansetron Odt [Zofran Odt] 4 mg PO Q8HR PRN #20 tab PRN Reason: Nausea And Vomiting Cephalexin [Keflex] 500 mg PO Q8HR 5 Days #15 cap Doxylamine Succinate/Vit B6 [Doxylamine-Pyridoxine 10-10 mg] 1 each PO Q6H PRN #20 tab PRN Reason: Nausea And Vomiting Discharge Medication List Escitalopram [Lexapro] 20 mg PO DAILY 10/09/20 [History] Pantoprazole Sodium [Protonix] 40 mg PO DAILY 10/09/20 [History] Cephalexin [Keflex] 500 mg PO Q8HR 5 Days #15 cap 07/26/22 [Rx] Doxylamine Succinate/Vit B6 [Doxylamine-Pyridoxine 10-10 mg] 1 each PO Q6H PRN #20 tab 07/26/22 [Rx] Ondansetron Odt [Zofran Odt] 4 mg PO Q8HR PRN #20 tab 07/26/22 [Rx] Acetaminophen-Codeine 300-30mg [Tylenol w/codeine #3] 2 each PO Q6HR PRN #20 tab 07/28/22 [Rx] Ibuprofen [Motrin] 600 mg PO Q6HR PRN #30 tab 07/28/22 [Rx] Follow up Appointment(s)/Referral(s): Shaun Meneses MD [STAFF PHYSICIAN] - 1 Week Patient Instructions/Handouts: Miscarriage (DC) Activity/Diet/Wound Care/Special Instructions: No intercourse or anything per vagina for 7 days. Please call if any fever, chills, excessive vaginal bleeding, and/or abdominal pain. Discharge Disposition: HOME SELF-CARE
[2022-07-28 08:33] VITALS: BP 104/69; PULSE 65; TEMP 98.3
[2022-07-28] MEDS ORDERED: ACETAMINOPHEN TAB 325 MG TAB PO PRN (22:20)
== END 2022-07-28 10:20 | disposition home or self-care (01) ==
LOC: EC 19:35 → 6NMEDSUR 20:55 → 4FBP 21:41
PROVIDERS: ADMIT Obstetrics & Gynecology; ATTEND Obstetrics & Gynecology
DX: O03.4 Incomplete spontaneous abortion without complication (principal); K21.9 Gastro-esophageal reflux disease without esophagitis; F32.A Depression, unspecified; F41.9 Anxiety disorder, unspecified; F17.200 Nicotine dependence, unspecified, uncomplicated; Z79.899 Other long term (current) drug therapy
CPT/HCPCS: 96374; 96375; 99285; 36415; 86900; 86901; 88305; 80048; 85025; 85610; 85730; 86850; 84702; 76801; 76817; 59812; G0378 ×3; J2250; J0330; J2270; J2765; J2405; J3010; J1100; J1885 ×2; J2704; J2001

== ENCOUNTER 2022-08-20 03:54 | Emergency (ER) | payer OTHER ==
[2022-08-20 04:02] VITALS: TEMP 97.8
[2022-08-20] MEDS ORDERED: PROCHLORPERAZINE INJ 10 MG/2 ML VIAL IVP STA (04:09)
[2022-08-20] MEDS ORDERED: SODIUM CHLORIDE 0.9% 1,000 ML IV STA (04:09)
[2022-08-20] MEDS ORDERED: LORazepam 2 MG/ML INJ IV STA (04:09)
[2022-08-20] MEDS ORDERED: HYDROmorphone 1 MG/ML 1 ML SYRINGE IVP STA (04:09)
[2022-08-20] MEDS ORDERED: diphenhydrAMINE 50 MG/ML 1 ML VIAL IVP STA (04:09)
--- NOTE | 2022-08-20 04:10 | ED ---
Nausea/Vomiting/Diarrhea HPI - General Chief complaint: Nausea/Vomiting/Diarrhea Stated complaint: Nausea, vomiting Time Seen by Provider: 08/20/22 03:56 Source: EMS, RN notes reviewed, old records reviewed Mode of arrival: EMS Limitations: no limitations - History of Present Illness Initial comments: This is a 31-year-old female to the emergency department for evaluation patient presents today for evaluation regards to intractable nausea vomiting. Patient is on multiple medications at home mainly being painkillers and anxiety medications. Patient recently did have a miscarriage causing her more anxiety. Patient has abdominal pain nausea vomiting moaning and groaning here in the ER no active vomiting no fevers no other complaints MD complaint: nausea, vomiting Description of Vomiting: food contents Associated Abdominal Pain: Yes Location: diffuse Radiation: none Severity: moderate Severity scale (1-10): 7 Quality: crushing Consistency: intermittent Improves with: none Worsens with: none Associated Symptoms: myalgias, loss of appetite, nausea/vomiting, weakness - Related Data Home Medications Medication Instructions Recorded Confirmed Escitalopram [Lexapro] 20 mg PO DAILY 10/09/20 10/09/20 Pantoprazole Sodium [Protonix] 40 mg PO DAILY 10/09/20 10/09/20 Previous Rx's Medication Instructions Recorded Cephalexin [Keflex] 500 mg PO Q8HR 5 Days #15 cap 07/26/22 Doxylamine Succinate/Vit B6 1 each PO Q6H PRN #20 tab 07/26/22 [Doxylamine-Pyridoxine 10-10 mg] Ondansetron Odt [Zofran Odt] 4 mg PO Q8HR PRN #20 tab 07/26/22 Acetaminophen-Codeine 300-30mg 2 each PO Q6HR PRN #20 tab 07/28/22 [Tylenol w/codeine #3] Ibuprofen [Motrin] 600 mg PO Q6HR PRN #30 tab 07/28/22 Allergies Allergy/AdvReac Type Severity Reaction Status Date / Time No Known Allergies Allergy Verified 07/26/22 13:04 Review of Systems ROS Statement: Those systems with pertinent positive or pertinent negative responses have been documented in the HPI. ROS Other: All systems not noted in ROS Statement are negative. Past Medical History Past Medical History: GERD/Reflux History of Any Multi-Drug Resistant Organisms: None Reported Past Surgical History: Appendectomy, Section Past Anesthesia/Blood Transfusion Reactions: No Reported Reaction Past Psychological History: Anxiety, Depression Smoking Status: Current every day smoker General Exam Limitations: no limitations General appearance: alert, in no apparent distress Head exam: Present: atraumatic, normocephalic, normal inspection Eye exam: Present: normal appearance, PERRL, EOMI. Absent: scleral icterus, conjunctival injection, periorbital swelling ENT exam: Present: normal exam, mucous membranes moist Neck exam: Present: normal inspection. Absent: tenderness, meningismus, lymphadenopathy Respiratory exam: Present: normal lung sounds bilaterally. Absent: respiratory distress, wheezes, rales, rhonchi, stridor Cardiovascular Exam: Present: regular rate, normal rhythm, normal heart sounds. Absent: systolic murmur, diastolic murmur, rubs, gallop, clicks GI/Abdominal exam: Present: soft, normal bowel sounds. Absent: distended, tenderness, guarding, rebound, rigid Extremities exam: Present: normal inspection, full ROM, normal capillary refill. Absent: tenderness, pedal edema, joint swelling, calf tenderness Back exam: Present: normal inspection Neurological exam: Present: alert, oriented X3, CN II-XII intact Psychiatric exam: Present: normal affect, normal mood Skin exam: Present: warm, dry, intact, normal color. Absent: rash Course Vital Signs 08/20/22 08/20/22 03:57 04:01 Temperature 97.6 F 97.8 F Pulse Rate 86 74 Respiratory 16 20 Rate Blood Pressure 126/76 126/77 O2 Sat by Pulse 100 100 Oximetry - Reevaluation(s) Reevaluation #1: 08/20/22 05:09 Medical record is reviewed Reevaluation #2: 08/20/22 05:09 Patient symptoms are resolved Reevaluation #3: 08/20/22 05:09 patient informed of results and questions answered Medical Decision Making - Medical Decision Making 31 female to the emergency department for evaluation of intractable nausea vomiting. Symptoms are resolved here in the ER she can be discharged home - Lab Data Result diagrams: 08/20/22 04:13 08/20/22 04:13 Lab Results 08/20/22 08/20/22 08/20/22 Range/Units 04:13 04:13 04:25 WBC 13.7 H (3.8-10.6) k/uL RBC 4.88 (3.80-5.40) m/uL Hgb 15.3 (11.4-16.0) gm/dL Hct 42.4 (34.0-46.0) % MCV 86.9 (80.0-100.0) fL MCH 31.3 (25.0-35.0) pg MCHC 36.1 (31.0-37.0) g/dL RDW 13.1 (11.5-15.5) % Plt Count 245 (150-450) k/uL MPV 8.2 Neutrophils % 78 % Lymphocytes % 16 % Monocytes % 3 % Eosinophils % 1 % Basophils % 0 % Neutrophils # 10.7 H (1.3-7.7) k/uL Lymphocytes # 2.2 (1.0-4.8) k/uL Monocytes # 0.5 (0-1.0) k/uL Eosinophils # 0.1 (0-0.7) k/uL Basophils # 0.0 (0-0.2) k/uL Sodium 139 (137-145) mmol/L Potassium 3.6 (3.5-5.1) mmol/L Chloride 107 (98-107) mmol/L Carbon Dioxide 20 L (22-30) mmol/L Anion Gap 12 mmol/L BUN 11 (7-17) mg/dL Creatinine 0.51 L (0.52-1.04) mg/dL Est GFR (CKD-EPI)AfAm >90 (>60 ml/min/1.73 sqM) Est GFR (CKD-EPI)NonAf >90 (>60 ml/min/1.73 sqM) Glucose 146 H (74-99) mg/dL Calcium 9.8 (8.4-10.2) mg/dL Phosphorus 1.5 L (2.5-4.5) mg/dL Magnesium 1.7 (1.6-2.3) mg/dL Total Bilirubin 0.5 (0.2-1.3) mg/dL AST 26 (14-36) U/L ALT 26 (4-34) U/L Alkaline Phosphatase 97 (38-126) U/L Total Protein 7.1 (6.3-8.2) g/dL Albumin 4.7 (3.5-5.0) g/dL Urine Color Yellow Urine Appearance Turbid H (Clear) Urine pH 8.0 (5.0-8.0) Ur Specific [place] 1.022 (1.001-1.035) Urine Protein 1+ H (Negative) Urine Glucose (UA) Negative (Negative) Urine Ketones 2+ H (Negative) Urine Blood Small H (Negative) Urine Nitrite Negative (Negative) Urine Bilirubin Negative (Negative) Urine Urobilinogen <2.0 (<2.0) mg/dL Ur Leukocyte Esterase Negative (Negative) Urine RBC 2 (0-5) /hpf Ur Squamous Epith Cells 31 H (0-4) /hpf Amorphous Sediment Rare H (None) /hpf Urine Bacteria Rare H (None) /hpf Urine Mucus Many H (None) /hpf Disposition Clinical Impression: Dehydration, Nausea & vomiting Disposition: HOME SELF-CARE Condition: Good Instructions (If sedation given, give patient instructions): Acute Nausea and Vomiting (ED) Is patient prescribed a controlled substance at d/c from ED?: No Referrals: Alistair Charles MD [Primary Care Provider] - 1-2 days Time of Disposition: 05:10
[2022-08-20 04:38] LABS: Basophils % (A) 0 %; Eosinophils # (A) 0.1 k/uL (0-0.7); Eosinophils % (A) 1 %; HCT 42.4 % (34.0-46.0); HGB 15.3 gm/dL (11.4-16.0); Lymphocytes # (A) 2.2 k/uL (1.0-4.8); Lymphocytes % (A) 16 %; MCH 31.3 pg (25.0-35.0); MCHC 36.1 g/dL (31.0-37.0); MCV 86.9 fL (80.0-100.0); Mean Platelet Volume 8.2; Monocytes # (A) 0.5 k/uL (0-1.0); Monocytes % (A) 3 %; Neutrophils # (A) 10.7 k/uL (1.3-7.7); Neutrophils % (A) 78 %; Platelet Count 245 k/uL (150-450); RBC 4.88 m/uL (3.80-5.40); RDW 13.1 % (11.5-15.5); WBC 13.7 k/uL (3.8-10.6)
[2022-08-20 04:42] LABS: Amorphous Sediment,Urine Rare /hpf; Appearance,Urine Turbid (Clear); Bacteria,Urine Rare /hpf; Bilirubin,Urine Negative (Negative); Blood,Urine Small (Negative); Color,Urine Yellow; Glucose,Urine (UA) Negative (Negative); Ketones,Urine 2+ (Negative); Leukocyte Esterase,Urine Negative (Negative); Mucus,Urine Many /hpf; Nitrite,Urine Negative (Negative); Protein,Urine 1+ (Negative); RBC,Urine 2 /hpf (0-5); Specific Gravity,Urine 1.022 (1.001-1.035); Squamous Epithelial Cell,Urine 31 /hpf (0-4); Urobilinogen,Urine <2.0 mg/dL (<2.0)
[2022-08-20 04:59] LABS: ALT 26 U/L (4-34); AST 26 U/L (14-36); African American GFR (CKD) >90 (>60 ml/min/1.73 sqM); Albumin 4.7 g/dL (3.5-5.0); Alkaline Phosphatase 97 U/L (38-126); Anion Gap 12 mmol/L; Blood Urea Nitrogen 11 mg/dL (7-17); Calcium 9.8 mg/dL (8.4-10.2); Carbon Dioxide 20 mmol/L (22-30); Chloride 107 mmol/L (98-107); Glucose 146 mg/dL (74-99); Magnesium 1.7 mg/dL (1.6-2.3); Non-African American GFR(CKD) >90 (>60 ml/min/1.73 sqM); Phosphorus 1.5 mg/dL (2.5-4.5); Potassium 3.6 mmol/L (3.5-5.1); Sodium 139 mmol/L (137-145); Total Bilirubin 0.5 mg/dL (0.2-1.3); Total Protein 7.1 g/dL (6.3-8.2)
[2022-08-20 05:16] VITALS: BP 118/72; PULSE 84; RESP 16
== END 2022-08-20 05:21 | disposition home or self-care (01) ==
LOC: EC 03:54
DX: E86.0 Dehydration (principal); R11.2 Nausea with vomiting, unspecified; K21.9 Gastro-esophageal reflux disease without esophagitis; F17.200 Nicotine dependence, unspecified, uncomplicated; Z79.899 Other long term (current) drug therapy
CPT/HCPCS: 36415; 80053; 83735; 84100; 85025; 81001; 99284; 96374; 96375; 96361; J2060; J1200; J0780; J1170

== ENCOUNTER 2022-08-31 02:30 | Emergency (ER) | payer OTHER ==
[2022-08-31] MEDS ORDERED: SODIUM CHLORIDE 0.9% 1,000 ML IV STA (02:37)
[2022-08-31] MEDS ORDERED: HYDROmorphone 1 MG/ML 1 ML SYRINGE IVP STA (02:37)
[2022-08-31] MEDS ORDERED: PROCHLORPERAZINE INJ 10 MG/2 ML VIAL IVP STA (02:38)
[2022-08-31] MEDS ORDERED: diphenhydrAMINE 50 MG/ML 1 ML VIAL IVP STA (02:38)
--- NOTE | 2022-08-31 02:39 | ED ---
Abdominal Pain HPI - General Stated Complaint: Abd Pain, Vomiting Time Seen by Provider: 08/31/22 02:35 Source: RN notes reviewed, old records reviewed Mode of arrival: EMS Limitations: no limitations - History of Present Illness Initial Comments: This is a 29-year-old female arrives with abdominal pain today. Patient Dese with active nausea vomiting retching. Mild abdominal pain nothing severe significant no tenderness. The pain she believes is just from active vomiting. She has persistent vomiting on arrival to the emergency room with retching and dry heaving. Patient is on Suboxone missed a dose MD Complaint: abdominal pain -: days(s) Location: diffuse Radiation: none Migration to: no migration Severity: severe Severity scale (1-10): 7 Quality: sharp Consistency: constant Improves With: nothing Worsens With: nothing Context: possible food poisoning Associated Symptoms: nausea, vomiting, diarrhea Treatments Prior to Arrival: other (0) - Related Data Home Medications Medication Instructions Recorded Confirmed Escitalopram [Lexapro] 20 mg PO DAILY 10/09/20 10/09/20 Pantoprazole Sodium [Protonix] 40 mg PO DAILY 10/09/20 10/09/20 Previous Rx's Medication Instructions Recorded Cephalexin [Keflex] 500 mg PO Q8HR 5 Days #15 cap 07/26/22 Doxylamine Succinate/Vit B6 1 each PO Q6H PRN #20 tab 07/26/22 [Doxylamine-Pyridoxine 10-10 mg] Ondansetron Odt [Zofran Odt] 4 mg PO Q8HR PRN #20 tab 07/26/22 Acetaminophen-Codeine 300-30mg 2 each PO Q6HR PRN #20 tab 07/28/22 [Tylenol w/codeine #3] Ibuprofen [Motrin] 600 mg PO Q6HR PRN #30 tab 07/28/22 Allergies Allergy/AdvReac Type Severity Reaction Status Date / Time No Known Allergies Allergy Verified 08/31/22 02:39 Review of Systems ROS Statement: Those systems with pertinent positive or pertinent negative responses have been documented in the HPI. ROS Other: All systems not noted in ROS Statement are negative. Past Medical History Past Medical History: GERD/Reflux History of Any Multi-Drug Resistant Organisms: None Reported Past Surgical History: Appendectomy, Section Past Anesthesia/Blood Transfusion Reactions: No Reported Reaction Past Psychological History: Anxiety, Depression Smoking Status: Current every day smoker General Exam General appearance: alert, in no apparent distress Head exam: Present: atraumatic, normocephalic, normal inspection Eye exam: Present: normal appearance, PERRL, EOMI. Absent: scleral icterus, conjunctival injection, periorbital swelling ENT exam: Present: normal exam, mucous membranes moist Neck exam: Present: normal inspection. Absent: tenderness, meningismus, lymphadenopathy Respiratory exam: Present: normal lung sounds bilaterally. Absent: respiratory distress, wheezes, rales, rhonchi, stridor Cardiovascular Exam: Present: regular rate, normal rhythm, normal heart sounds. Absent: systolic murmur, diastolic murmur, rubs, gallop, clicks GI/Abdominal exam: Present: soft, normal bowel sounds. Absent: distended, tenderness, guarding, rebound, rigid Extremities exam: Present: normal inspection, full ROM, normal capillary refill. Absent: tenderness, pedal edema, joint swelling, calf tenderness Back exam: Present: normal inspection Neurological exam: Present: alert, oriented X3, CN II-XII intact Psychiatric exam: Present: normal affect, normal mood Skin exam: Present: warm, dry, intact, normal color. Absent: rash Course Vital Signs 08/31/22 08/31/22 02:32 04:15 Temperature 98.0 F Pulse Rate 84 81 Respiratory 16 15 Rate Blood Pressure 131/99 128/67 O2 Sat by Pulse 98 99 Oximetry - Reevaluation(s) Reevaluation #1: 08/31/22 Medical record is reviewed Reevaluation #2: 08/31/22 patient has improved symptoms here in the ER Reevaluation #3: 08/31/22 Patient informed results questions answered Reevaluation #4: 08/31/22 Patient is known to our emergency department for being on Suboxone having issues with withdrawal. She has appear to be having withdrawal symptoms here in the ER Medical Decision Making - Medical Decision Making 31 female to the emergency department for evaluation abdominal pain Significant severe. Patient has history of appendectomy and . Patient has normal lab values here, symptoms are improved here in the ER patient feels good for discharge home - Lab Data Result diagrams: 08/31/22 02:53 08/31/22 02:53 Lab Results 08/31/22 08/31/22 Range/Units 02:53 02:53 WBC 6.6 (3.8-10.6) k/uL RBC 5.01 (3.80-5.40) m/uL Hgb 15.7 (11.4-16.0) gm/dL Hct 44.6 (34.0-46.0) % MCV 88.9 (80.0-100.0) fL MCH 31.2 (25.0-35.0) pg MCHC 35.1 (31.0-37.0) g/dL RDW 12.8 (11.5-15.5) % Plt Count 200 (150-450) k/uL MPV 7.7 Neutrophils % 66 % Lymphocytes % 26 % Monocytes % 4 % Eosinophils % 1 % Basophils % 1 % Neutrophils # 4.4 (1.3-7.7) k/uL Lymphocytes # 1.7 (1.0-4.8) k/uL Monocytes # 0.3 (0-1.0) k/uL Eosinophils # 0.1 (0-0.7) k/uL Basophils # 0.0 (0-0.2) k/uL Sodium 143 (137-145) mmol/L Potassium 3.9 (3.5-5.1) mmol/L Chloride 109 H (98-107) mmol/L Carbon Dioxide 23 (22-30) mmol/L Anion Gap 11 mmol/L BUN 8 (7-17) mg/dL Creatinine 0.53 (0.52-1.04) mg/dL Est GFR (CKD-EPI)AfAm >90 (>60 ml/min/1.73 sqM) Est GFR (CKD-EPI)NonAf >90 (>60 ml/min/1.73 sqM) Glucose 131 H (74-99) mg/dL Calcium 9.0 (8.4-10.2) mg/dL Phosphorus 2.2 L (2.5-4.5) mg/dL Magnesium 2.0 (1.6-2.3) mg/dL Total Bilirubin 0.4 (0.2-1.3) mg/dL AST 22 (14-36) U/L ALT 23 (4-34) U/L Alkaline Phosphatase 82 (38-126) U/L Total Protein 7.2 (6.3-8.2) g/dL Albumin 4.5 (3.5-5.0) g/dL Amylase 75 (30-110) U/L Lipase 84 (23-300) U/L Disposition Clinical Impression: Nausea & vomiting, Dehydration, Abdominal pain Disposition: HOME SELF-CARE Condition: Good Instructions (If sedation given, give patient instructions): Abdominal Pain (ED) Is patient prescribed a controlled substance at d/c from ED?: No Referrals: Alistair Charles MD [Primary Care Provider] - 1-2 days Time of Disposition: 03:50
[2022-08-31 02:40] VITALS: TEMP 98
[2022-08-31 03:22] LABS: ALT 23 U/L (4-34); AST 22 U/L (14-36); African American GFR (CKD) >90 (>60 ml/min/1.73 sqM); Albumin 4.5 g/dL (3.5-5.0); Alkaline Phosphatase 82 U/L (38-126); Amylase 75 U/L (30-110); Anion Gap 11 mmol/L; Blood Urea Nitrogen 8 mg/dL (7-17); Carbon Dioxide 23 mmol/L (22-30); Chloride 109 mmol/L (98-107); Glucose 131 mg/dL (74-99); Lipase 84 U/L (23-300); Non-African American GFR(CKD) >90 (>60 ml/min/1.73 sqM); Phosphorus 2.2 mg/dL (2.5-4.5); Potassium 3.9 mmol/L (3.5-5.1); Sodium 143 mmol/L (137-145); Total Bilirubin 0.4 mg/dL (0.2-1.3); Total Protein 7.2 g/dL (6.3-8.2)
[2022-08-31 03:32] LABS: Basophils % (A) 1 %; Eosinophils # (A) 0.1 k/uL (0-0.7); Eosinophils % (A) 1 %; HCT 44.6 % (34.0-46.0); HGB 15.7 gm/dL (11.4-16.0); Lymphocytes # (A) 1.7 k/uL (1.0-4.8); Lymphocytes % (A) 26 %; MCH 31.2 pg (25.0-35.0); MCHC 35.1 g/dL (31.0-37.0); MCV 88.9 fL (80.0-100.0); Mean Platelet Volume 7.7; Monocytes # (A) 0.3 k/uL (0-1.0); Monocytes % (A) 4 %; Neutrophils # (A) 4.4 k/uL (1.3-7.7); Neutrophils % (A) 66 %; Platelet Count 200 k/uL (150-450); RBC 5.01 m/uL (3.80-5.40); RDW 12.8 % (11.5-15.5); WBC 6.6 k/uL (3.8-10.6)
[2022-08-31 04:15] VITALS: BP 128/67; PULSE 81; RESP 15
== END 2022-08-31 04:22 | disposition home or self-care (01) ==
LOC: EC 02:30
DX: R11.2 Nausea with vomiting, unspecified (principal); E86.0 Dehydration; R10.9 Unspecified abdominal pain; K21.9 Gastro-esophageal reflux disease without esophagitis; F41.9 Anxiety disorder, unspecified; F32.A Depression, unspecified; F17.200 Nicotine dependence, unspecified, uncomplicated; Z79.899 Other long term (current) drug therapy
CPT/HCPCS: 36415; 80053; 82150; 83690; 83735; 84100; 85025; 99284; 96374; 96375 ×2; 96361; J1200; J0780; J1170

== ENCOUNTER 2022-10-19 07:30 | Emergency (ER) | payer OTHER ==
[2022-10-19] MEDS ORDERED: PANTOPRAZOLE 40 MG/10 ML VIAL IVP STA (07:36)
[2022-10-19] MEDS ORDERED: diphenhydrAMINE 50 MG/ML 1 ML VIAL IVP STA (07:36)
[2022-10-19] MEDS ORDERED: KETOROLAC 15 MG/ML 1 ML VIAL IVP STA (07:36)
[2022-10-19] MEDS ORDERED: HALOPERIDOL LACTATE 5 MG/ML 1 ML VIAL IVP STA (07:36)
[2022-10-19] MEDS ORDERED: SODIUM CHLORIDE 0.9% 2,000 ML IV STA (07:36)
--- NOTE | 2022-10-19 07:43 | ED ---
General Adult HPI - General Stated complaint: abd pain Time Seen by Provider: 10/19/22 07:36 Source: RN notes reviewed, old records reviewed - History of Present Illness Initial comments: Patient is a 31-year-old female with past medical history remarkable for chronic intermittent abdominal pain over the last year, acid reflux, on Suboxone, with intermittent marijuana use presents emergency Department complaining of abdominal pain, nausea, vomiting. Patient began having abdominal pain yesterday afternoon and has been having nonbilious nonbloody emesis since then. Has had multiple episodes. Has had expenses before. They believe it is her gallbladder. She states she has not had much follow-up regarding it. States it is happening somewhat more frequently lately, may use to be every couple months now has occurred 3 times in the last 2 months. She denies any chest pain or shortness of breath. Describes the pain as a achy sensation located in her epigastric and right upper quadrant region. No fevers. Possibly . Denies urinary complaints such as dysuria or hematuria. Denies diarrhea. No cough. No other acute complaints at this time. Presents for further evaluation at this time. - Related Data Home Medications Medication Instructions Recorded Confirmed Escitalopram [Lexapro] 20 mg PO DAILY 10/09/20 10/09/20 Pantoprazole Sodium [Protonix] 40 mg PO DAILY 10/09/20 10/09/20 Previous Rx's Medication Instructions Recorded Cephalexin [Keflex] 500 mg PO Q8HR 5 Days #15 cap 07/26/22 Doxylamine Succinate/Vit B6 1 each PO Q6H PRN #20 tab 07/26/22 [Doxylamine-Pyridoxine 10-10 mg] Ondansetron Odt [Zofran Odt] 4 mg PO Q8HR PRN #20 tab 07/26/22 Acetaminophen-Codeine 300-30mg 2 each PO Q6HR PRN #20 tab 07/28/22 [Tylenol w/codeine #3] Ibuprofen [Motrin] 600 mg PO Q6HR PRN #30 tab 07/28/22 Allergies Allergy/AdvReac Type Severity Reaction Status Date / Time No Known Allergies Allergy Verified 08/31/22 02:39 Review of Systems ROS Statement: Those systems with pertinent positive or pertinent negative responses have been documented in the HPI. Review of Systems: CONST: Denies fever EYES: Denies blurry vision ENT: Denies nasal congestion C/V: Denies Chest pain RESP: Denies shortness of breath GI: Endorses abdominal pain : Denies dysuria SKIN: Denies rash. MSK: Denies joint pain. NEURO: Denies headache ROS Other: All systems not noted in ROS Statement are negative. Past Medical History Past Medical History: GERD/Reflux History of Any Multi-Drug Resistant Organisms: None Reported Past Surgical History: Appendectomy, Section Past Anesthesia/Blood Transfusion Reactions: No Reported Reaction Past Psychological History: Anxiety, Depression Smoking Status: Current every day smoker General Exam - General Exam Comments Initial Comments: General: Appears in no acute distress. HEAD: Normal with no signs of head trauma. EYES: PERRLA, EOMI, conjunctiva normal, no discharge. ENT: Hearing grossly intact, normal oropharynx. Mildly dry mucous membranes. RESPIRATORY: Clear breath sounds bilaterally. No wheezes, rales, or rhonchi. C/V: Regular rate and rhythm. S1 and S2 auscultated, no edema, peripheral pulses 2+ and intact throughout ABD: Abdomen is soft, nondistended. Mildly tender to palpation epigastric region and right upper quadrant. No guarding. No peritoneal signs. No rebound tenderness. EXT: Normal range of motion, no obvious deformity SKIN: No rashes or lesions observed on exposed skin. NEURO: Alert and oriented 4. Course Vital Signs 10/19/22 10/19/22 07:41 10:58 Temperature 98.3 F 98.2 F Pulse Rate 64 74 Respiratory 18 16 Rate Blood Pressure 117/69 101/53 O2 Sat by Pulse 95 95 Oximetry Medical Decision Making - Medical Decision Making Based on the patient's presentation and physical exam, I'm concerned for possible intra-abdominal pathology for her current symptoms. This includes bladder or hepatobiliary pathology. Pancreatitis and gastritis are also on the differential. We will obtain abdominal laboratory studies as well as right upper quadrant ultrasound to begin. She was in agreement with this plan. She'll be symptomatically treated with 1 L fluid bolus, IV Benadryl, Haldol, Toradol, Protonix. Vital signs are within acceptable limits. Patient's laboratory studies are remarkable for a mild leukocytosis of 13.8 which is likely reactive. Patient is not . Urine is contaminated catch. Patient's flu, RSV, Covid negative. Patient's: Ultrasound reveals no evidence of acute cholecystitis or gallstones. On reevaluation, patient states that she still has mild pain. She is requesting a CT, which will be done. She'll receive additional IV fluids. CT abdomen and pelvis revealed no evidence of acute intra-abdominal process. On reevaluation, patient's symptoms have resolved. She is tolerating oral intake. I believe it is safer to be discharged home. Strict return precautions were discussed. She was in agreement this plan. I instructed the patient to follow up with their PCP in the next 1-3 days. I explained that the patient should return to the emergency department if they experience any worsening symptoms. Strict return precautions were discussed with the patient. The patient expressed understanding of these instructions. I answered all questions that the patient had. The patient was discharged home in good condition with their prescriptions and follow up information. Was pt. sent in by a medical professional or institution (, PA, STATION CASHIER, urgent care, hospital, or long term...) When possible be specific @ -No Did you speak to anyone other than the patient for history (EMS, parent, family, police, friend...)? What history was obtained from this source @ -No Did you review nursing and triage notes (agree or disagree)? Why? @ -I reviewed and agree with nursing and triage notes Were old charts reviewed (outside hosp., previous admission, EMS record, old EKG, old radiological studies, urgent care reports/EKG's, long term records)? Report findings @ -No old charts were reviewed Differential Diagnosis (chest pain, altered mental status, abdominal pain women, abdominal pain men, vaginal bleeding, weakness, fever, dyspnea, syncope, headache, dizziness, GI bleed, back pain, seizure, CVA, palpatations, mental health)? @ -Pancreatitis, UTI, dehydration, ELROY, cholecystitis, this list is not all inclusive. EKG interpreted by me (3pts min.). @ -None done X-rays interpreted by me (1pt min.). @ -None done CT interpreted by me (1pt min.). @ -CT abdomen pelvis with contrast revealed no evidence of acute intra- abdominal process. U/S interpreted by me (1pt. min.). @ -Gallbladder ultrasound negative for acute cholecystitis What testing was considered but not performed or refused? (CT, X-rays, U/S, labs)? Why? @ -None What meds were considered but not given or refused? Why? @ -None Did you discuss the management of the patient with other professionals (professionals i.e. , PA, STATION CASHIER, lab, RT, psych nurse, social science research assistant, senior business development manager, te acher, veterinary medical officer, director of casework department)? Give summary @ -No Was smoking cessation discussed for >3mins.? @ -No Was critical care preformed (if so, how long)? @ -No Were there social determinants of health that impacted care today? How? (Homelessness, low income, unemployed, alcoholism, drug addiction, transportation, low edu. Level, literacy, decrease access to med. care, intermediate, rehab)? @ -No Was there de-escalation of care discussed even if they declined (Discuss DNR or withdrawal of care, Hospice)? DNR status @ -No What co-morbidities impacted this encounter? (DM, HTN, Smoking, COPD, CAD, Cancer, CVA, ARF, Chemo, Hep., AIDS, mental health diagnosis, sleep apnea, morbid obesity)? @ -None Was patient admitted / discharged? Hospital course, mention meds given and rou te, prescriptions, significant lab abnormalities, going to OR and other pertinent info. @ -Discharged home. See above for ED course. Undiagnosed new problem with uncertain prognosis? @ -No Drug Therapy requiring intensive monitoring for toxicity (Heparin, Nitro, Insulin, Cardizem)? @ -No Were any procedures done? @ -No Diagnosis/symptom? @ -Abdominal pain of unknown etiology Acute, or Chronic, or Acute on Chronic? @ -Acute on chronic Uncomplicated (without systemic symptoms) or Complicated (systemic symptoms)? @ -Uncomplicated Side effects of treatment? @ -No Exacerbation, Progression, or Severe Exacerbation? @ -Exacerbation Poses a threat to life or bodily function? How? (Chest pain, [place], [place], pneumonia, PE, COPD, DKA, ARF, appy, cholecystitis, CVA, Diverticulitis, Homicidal, Suicidal, threat to staff... and all critical care pts) @ -No Diagnosis/symptom? @ -Nausea and vomiting Acute, or Chronic, or Acute on Chronic? @ -Acute on chronic Uncomplicated (without systemic symptoms) or Complicated (systemic symptoms)? @ -Uncomplicated Side effects of treatment? @ -none Exacerbation, Progression, or Severe Exacerbation] @ -no Poses a threat to life or bodily function? @ -no - Lab Data Result diagrams: 10/19/22 07:59 10/19/22 07:59 Lab Results 10/19/22 10/19/22 10/19/22 Range/Units 07:59 07:59 07:59 WBC 13.8 H (3.8-10.6) k/uL RBC 5.28 (3.80-5.40) m/uL Hgb 16.5 H (11.4-16.0) gm/dL Hct 47.7 H (34.0-46.0) % MCV 90.4 (80.0-100.0) fL MCH 31.2 (25.0-35.0) pg MCHC 34.5 (31.0-37.0) g/dL RDW 12.7 (11.5-15.5) % Plt Count 205 (150-450) k/uL MPV 7.9 Neutrophils % 87 % Lymphocytes % 8 % Monocytes % 3 % Eosinophils % 1 % Basophils % 0 % Neutrophils # 12.0 H (1.3-7.7) k/uL Lymphocytes # 1.2 (1.0-4.8) k/uL Monocytes # 0.5 (0-1.0) k/uL Eosinophils # 0.1 (0-0.7) k/uL Basophils # 0.1 (0-0.2) k/uL PT 11.3 (9.0-12.0) sec INR 1.1 (<1.2) APTT 26.2 (22.0-30.0) sec Sodium (137-145) mmol/L Potassium (3.5-5.1) mmol/L Chloride (98-107) mmol/L Carbon Dioxide (22-30) mmol/L Anion Gap mmol/L BUN (7-17) mg/dL Creatinine (0.52-1.04) mg/dL Est GFR (CKD-EPI)AfAm (>60 ml/min/1.73 sqM) Est GFR (CKD-EPI)NonAf (>60 ml/min/1.73 sqM) Glucose (74-99) mg/dL Calcium (8.4-10.2) mg/dL Total Bilirubin (0.2-1.3) mg/dL AST (14-36) U/L ALT (4-34) U/L Alkaline Phosphatase (38-126) U/L Total Protein (6.3-8.2) g/dL Albumin (3.5-5.0) g/dL Amylase (30-110) U/L Lipase (23-300) U/L HCG, Qual Urine Color Yellow Urine Appearance Turbid H (Clear) Urine pH 6.0 (5.0-8.0) Ur Specific [place] 1.029 (1.001-1.035) Urine Protein 2+ H (Negative) Urine Glucose (UA) Negative (Negative) Urine Ketones 3+ H (Negative) Urine Blood Large H (Negative) Urine Nitrite Negative (Negative) Urine Bilirubin Negative (Negative) Urine Urobilinogen <2.0 (<2.0) mg/dL Ur Leukocyte Esterase Negative (Negative) Urine RBC 3 (0-5) /hpf Urine WBC 3 (0-5) /hpf Ur Squamous Epith Cells 14 H (0-4) /hpf Amorphous Sediment Moderate H (None) /hpf Urine Bacteria Rare H (None) /hpf Urine Mucus Many H (None) /hpf Influenza Type A (PCR) (Not Detectd) Influenza Type B (PCR) (Not Detectd) RSV (PCR) (Not Detectd) SARS-CoV-2 (PCR) (Not Detectd) 10/19/22 10/19/22 Range/Units 07:59 07:59 WBC (3.8-10.6) k/uL RBC (3.80-5.40) m/uL Hgb (11.4-16.0) gm/dL Hct (34.0-46.0) % MCV (80.0-100.0) fL MCH (25.0-35.0) pg MCHC (31.0-37.0) g/dL RDW (11.5-15.5) % Plt Count (150-450) k/uL MPV Neutrophils % % Lymphocytes % % Monocytes % % Eosinophils % % Basophils % % Neutrophils # (1.3-7.7) k/uL Lymphocytes # (1.0-4.8) k/uL Monocytes # (0-1.0) k/uL Eosinophils # (0-0.7) k/uL Basophils # (0-0.2) k/uL PT (9.0-12.0) sec INR (<1.2) APTT (22.0-30.0) sec Sodium 144 (137-145) mmol/L Potassium 3.9 (3.5-5.1) mmol/L Chloride 102 (98-107) mmol/L Carbon Dioxide 27 (22-30) mmol/L Anion Gap 15 mmol/L BUN 16 (7-17) mg/dL Creatinine 0.53 (0.52-1.04) mg/dL Est GFR (CKD-EPI)AfAm >90 (>60 ml/min/1.73 sqM) Est GFR (CKD-EPI)NonAf >90 (>60 ml/min/1.73 sqM) Glucose 143 H (74-99) mg/dL Calcium 9.8 (8.4-10.2) mg/dL Total Bilirubin 0.8 (0.2-1.3) mg/dL AST 23 (14-36) U/L ALT 26 (4-34) U/L Alkaline Phosphatase 78 (38-126) U/L Total Protein 8.3 H (6.3-8.2) g/dL Albumin 5.1 H (3.5-5.0) g/dL Amylase 84 (30-110) U/L Lipase 41 (23-300) U/L HCG, Qual Not Detected Urine Color Urine Appearance (Clear) Urine pH (5.0-8.0) Ur Specific [place] (1.001-1.035) Urine Protein (Negative) Urine Glucose (UA) (Negative) Urine Ketones (Negative) Urine Blood (Negative) Urine Nitrite (Negative) Urine Bilirubin (Negative) Urine Urobilinogen (<2.0) mg/dL Ur Leukocyte Esterase (Negative) Urine RBC (0-5) /hpf Urine WBC (0-5) /hpf Ur Squamous Epith Cells (0-4) /hpf Amorphous Sediment (None) /hpf Urine Bacteria (None) /hpf Urine Mucus (None) /hpf Influenza Type A (PCR) Not Detected (Not Detectd) Influenza Type B (PCR) Not Detected (Not Detectd) RSV (PCR) Not Detected (Not Detectd) SARS-CoV-2 (PCR) Not Detected (Not Detectd) Disposition Clinical Impression: Abdominal pain, Abdominal pain of unknown etiology, Nausea and vomiting Disposition: HOME SELF-CARE Condition: Good Instructions (If sedation given, give patient instructions): Abdominal Pain (ED) Is patient prescribed a controlled substance at d/c from ED?: No Referrals: Alistair Charles MD [Primary Care Provider] - 1-2 days Time of Disposition: 10:20
[2022-10-19 08:26] LABS: Amorphous Sediment,Urine Moderate /hpf; Appearance,Urine Turbid (Clear); Bacteria,Urine Rare /hpf; Bilirubin,Urine Negative (Negative); Blood,Urine Large (Negative); Color,Urine Yellow; Glucose,Urine (UA) Negative (Negative); Ketones,Urine 3+ (Negative); Leukocyte Esterase,Urine Negative (Negative); Mucus,Urine Many /hpf; Nitrite,Urine Negative (Negative); Protein,Urine 2+ (Negative); RBC,Urine 3 /hpf (0-5); Specific Gravity,Urine 1.029 (1.001-1.035); Squamous Epithelial Cell,Urine 14 /hpf (0-4); Urobilinogen,Urine <2.0 mg/dL (<2.0); WBC,Urine 3 /hpf (0-5)
[2022-10-19 08:31] LABS: Basophils # (A) 0.1 k/uL (0-0.2); Basophils % (A) 0 %; Eosinophils # (A) 0.1 k/uL (0-0.7); Eosinophils % (A) 1 %; HCT 47.7 % (34.0-46.0); HGB 16.5 gm/dL (11.4-16.0); Lymphocytes # (A) 1.2 k/uL (1.0-4.8); Lymphocytes % (A) 8 %; MCH 31.2 pg (25.0-35.0); MCHC 34.5 g/dL (31.0-37.0); MCV 90.4 fL (80.0-100.0); Mean Platelet Volume 7.9; Monocytes # (A) 0.5 k/uL (0-1.0); Monocytes % (A) 3 %; Neutrophils % (A) 87 %; Platelet Count 205 k/uL (150-450); RBC 5.28 m/uL (3.80-5.40); RDW 12.7 % (11.5-15.5); WBC 13.8 k/uL (3.8-10.6)
[2022-10-19 08:47] LABS: ALT 26 U/L (4-34); AST 23 U/L (14-36); African American GFR (CKD) >90 (>60 ml/min/1.73 sqM); Albumin 5.1 g/dL (3.5-5.0); Alkaline Phosphatase 78 U/L (38-126); Amylase 84 U/L (30-110); Anion Gap 15 mmol/L; Blood Urea Nitrogen 16 mg/dL (7-17); Calcium 9.8 mg/dL (8.4-10.2); Carbon Dioxide 27 mmol/L (22-30); Chloride 102 mmol/L (98-107); Glucose 143 mg/dL (74-99); Lipase 41 U/L (23-300); Non-African American GFR(CKD) >90 (>60 ml/min/1.73 sqM); Potassium 3.9 mmol/L (3.5-5.1); Sodium 144 mmol/L (137-145); Total Bilirubin 0.8 mg/dL (0.2-1.3); Total Protein 8.3 g/dL (6.3-8.2)
[2022-10-19 08:49] LABS: HCG,Qualitative Serum Not Detected
[2022-10-19 08:50] LABS: INR 1.1 (<1.2); Partial Thromboplastin Time 26.2 sec (22.0-30.0); Prothrombin Time 11.3 sec (9.0-12.0)
--- NOTE | 2022-10-19 09:03 | US ---
EXAMINATION TYPE: US gallbladder DATE OF EXAM: 10/19/2022 COMPARISON: NONE CLINICAL HISTORY: n/v, RUQ pain. N/V, RUQ pain. Hx appendectomy. TECHNIQUE: Multiple sonographic images of the right upper quadrant are obtained. FINDINGS: EXAM MEASUREMENTS: Liver Length: 18.6 cm Gallbladder Wall: 0.21 cm CBD: 0.41 cm Right Kidney: 12.4 x 5.4 x 4.8 cm PRESCHOOL ASSOCIATE TEACHER NOTES: *Limited due to overlying bowel gas. Pancreas: Appears hyperechoic, limited visibility. Liver: Appears enlarged and very coarse in echotexture. Gallbladder: Measures 9.4 cm in length. Appears anechoic. Evidence for sonographic Oconnor's sign: No CBD: Appears wnl Right Kidney: Appears slightly enlarged. No hydronephrosis or masses seen The visualized portions of pancreas are unremarkable with the body and tail obscured by overlying bow el gas. Liver is mildly enlarged without focal lesion. No cholelithiasis, shadowing calculi, or wall thickening. The right kidney is unremarkable without evidence of shadowing calculi, hydronephrosis, c ontour deforming solid mass. IMPRESSION: 1. No acute process or evidence for acute cholecystitis. 2. Mild hepatomegaly without focal lesion which may be Reidel lobe normal variant.
--- NOTE | 2022-10-19 10:25 | CT ---
EXAMINATION TYPE: CT abdomen pelvis w con DATE OF EXAM: 10/19/2022 COMPARISON: Ultrasound gallbladder same [id number] HISTORY: Abdominal pain, acute CT DLP: 1154.1 mGycm Automated exposure control for dose reduction was used. TECHNIQUE: Helical acquisition of images was performed from the lung bases through the pelvis. CONTRAST: Performed without Oral Contrast and with IV Contrast, patient injected with 100 mL of Isovue 300. FINDINGS: LUNG BASES: No significant abnormality is appreciated. LIVER/GB: No significant abnormality is appreciated. PANCREAS: No significant abnormality is seen. SPLEEN: No significant abnormality is seen. ADRENALS: No significant abnormality is seen. KIDNEYS: No significant abnormality is seen. FREE AIR: No free air is visualized. RETROPERITONEAL ADENOPATHY: None visualized REPRODUCTIVE ORGANS: No significant abnormality is seen URINARY BLADDER: No significant abnormality is seen. PELVIC ADENOPATHY: None visualized. OSSEOUS STRUCTURES: No significant abnormality is seen. BOWEL: No significant abnormality is seen. Postsurgical changes of previous appendectomy. IMPRESSION: No acute process.
[2022-10-19] MEDS ORDERED: ONDANSETRON 4 MG ODT STARTER PACK 2 TAB BTL PO STA (10:49)
[2022-10-19 11:10] VITALS: BP 101/53; PULSE 74; RESP 16; TEMP 98.2
== END 2022-10-19 11:43 | disposition home or self-care (01) ==
LOC: EC 07:30
DX: R10.11 Right upper quadrant pain (principal); R11.2 Nausea with vomiting, unspecified; K21.9 Gastro-esophageal reflux disease without esophagitis; F41.9 Anxiety disorder, unspecified; F32.A Depression, unspecified; F17.200 Nicotine dependence, unspecified, uncomplicated; Z20.822 Contact with and (suspected) exposure to COVID-19; Z79.899 Other long term (current) drug therapy
CPT/HCPCS: 36415; 80053; 82150; 83690; 85025; 85610; 85730; 81001; 84703; 87636; 76705; 74177; 99285; 96374; 96375 ×3; 96361 ×2; J1200; J1630; J1885; S0119; C9113

== ENCOUNTER → 2024-10-02 | Outpatient (CLI) | payer OTHER | END | disposition home or self-care (01) | LOC: RADECHMAIN 08:00 | PROVIDERS: ATTEND Family Medicine | DX: Z53.9 Procedure and treatment not carried out, unspecified reason (principal) | CPT/HCPCS: 93225 ==

== ENCOUNTER 2024-12-21 17:39 | Emergency (ER) | payer OTHER ==
--- NOTE | 2024-12-21 18:22 | ED ---
General Adult HPI - General Chief complaint: Burn/Smoke Inhalation Stated complaint: R hand burn -[facility] Time Seen by Provider: 12/21/24 17:46 Source: patient, RN notes reviewed Mode of arrival: ambulatory Limitations: no limitations - History of Present Illness Initial comments: 34-year-old female presents to the emergency department for evaluation of burn to her right hand. Patient states that she opened the industrial washer at her job and the steam hit her hand causing a burn. She states that the burn is in the region of her thumb and slightly into her wrist. She states that she put a cold object on it and this caused a blister to pop. She reports full range of motion. Reports that the entirety of the burn is painful. Denies any other inj uries. She is up-to-date on a tetanus vaccine. - Related Data Home Medications Medication Instructions Recorded Confirmed Buprenorphine HCl/Naloxone HCl 1 film SL TID 05/30/23 10/31/24 [Suboxone 8 mg-2 mg Sl Film] Ondansetron [Zofran] 4 mg PO Q6H PRN 05/30/23 10/31/24 Pantoprazole Sodium [Protonix] 20 mg PO DAILY 05/30/23 10/31/24 QUEtiapine [SEROquel] 150 mg PO HS 05/30/23 10/31/24 Citalopram Hydrobromide [CeleXA] 10 mg PO DAILY 10/31/24 10/31/24 Cyclobenzaprine [Flexeril] 10 mg PO TID PRN 10/31/24 10/31/24 Ketorolac [Toradol] 10 mg PO Q6HR PRN 10/31/24 10/31/24 Previous Rx's Medication Instructions Recorded Metoclopramide [Reglan] 10 mg PO TID PRN #15 tab 05/30/23 Allergies Allergy/AdvReac Type Severity Reaction Status Date / Time No Known Allergies Allergy Verified 12/21/24 17:45 Review of Systems ROS Statement: Those systems with pertinent positive or pertinent negative responses have been documented in the HPI. ROS Other: All systems not noted in ROS Statement are negative. Past Medical History Past Medical History: GERD/Reflux History of Any Multi-Drug Resistant Organisms: None Reported Past Surgical History: Appendectomy, Section Additional Past Surgical History / Comment(s): scope Past Anesthesia/Blood Transfusion Reactions: No Reported Reaction Past Psychological History: Anxiety, Depression Smoking Status: Current every day smoker, Vaper Past Alcohol Use History: None Reported Past Drug Use History: Marijuana General Exam Limitations: no limitations General appearance: alert, in no apparent distress Head exam: Present: atraumatic, normocephalic, normal inspection Eye exam: Present: normal appearance, PERRL, EOMI. Absent: scleral icterus, conjunctival injection, periorbital swelling Respiratory exam: Present: normal lung sounds bilaterally. Absent: respiratory distress, wheezes, rales, rhonchi, stridor Cardiovascular Exam: Present: regular rate, normal rhythm, normal heart sounds. Absent: systolic murmur, diastolic murmur, rubs, gallop, clicks Extremities exam: Present: normal inspection, full ROM, normal capillary refill, other (Radial pulses 2+, normal capillary refill). Absent: tenderness, pedal edema, joint swelling, calf tenderness Neurological exam: Present: alert, oriented X3 Psychiatric exam: Present: normal affect, normal mood Skin exam: Present: warm, dry, erythema (Superficial partial burn to the right hand first metacarpal region noncircumferential, normal capillary refill, less than 0.25% burn surface area). Absent: normal color Course Vital Signs 12/21/24 12/21/24 17:40 18:50 Temperature 97.6 F 98.0 F Pulse Rate 68 66 Respiratory 18 16 Rate Blood Pressure 121/79 118/81 O2 Sat by Pulse 99 97 Oximetry Medical Decision Making - Medical Decision Making Was pt. sent in by a medical professional or institution (, PA, RUBBER PRINTING MACHINE OPERATOR, urgent care, hospital, or [facility]...) When possible be specific @ -No Did you speak to anyone other than the patient for history (EMS, parent, family, police, friend...)? What history was obtained from this source @ -No Did you review nursing and triage notes (agree or disagree)? Why? @ -I reviewed and agree with nursing and triage notes Were old charts reviewed (outside hosp., previous admission, EMS record, old EKG, old radiological studies, urgent care reports/EKG's, [facility] records)? Report findings @ -No old charts were reviewed Differential Diagnosis (chest pain, altered mental status, abdominal pain women, abdominal pain men, vaginal bleeding, weakness, fever, dyspnea, syncope, headache, dizziness, GI bleed, back pain, seizure, CVA, palpatations, mental health, musculoskeletal)? @ -First-degree burn, superficial partial, superficial deep, third-degree burn, cellulitis, this list is not all inclusive EKG interpreted by me (3pts min.). @ -None X-rays interpreted by me (1pt min.). @ -None done CT interpreted by me (1pt min.). @ -None done U/S interpreted by me (1pt. min.). @ -None done What testing was considered but not performed or refused? (CT, X-rays, U/S, labs)? Why? @ -None What meds were considered but not given or refused? Why? @ -None Did you discuss the management of the patient with other professionals (bolivar mitchell i.e., Dr., PA, RUBBER PRINTING MACHINE OPERATOR, lab, RT, psych nurse, drug abuse social worker, certified caregiver, teacher, loan officer, egg caser)? Give summary @ -No Was smoking cessation discussed for >3mins.? @ -No Was critical care preformed (if so, how long)? @ -No Were there social determinants of health that impacted care today? How? (Homelessness, low income, unemployed, alcoholism, drug addiction, transportation, low edu. Level, literacy, decrease access to med. care, correction, rehab)? @ -No Was there de-escalation of care discussed even if they declined (Discuss DNR or withdrawal of care, Hospice)? DNR status @ -No What co-morbidities impacted this encounter? (DM, HTN, Smoking, COPD, CAD, Cancer, CVA, ARF, Chemo, Hep., AIDS, mental health diagnosis, sleep apnea, morbid obesity)? @ -None Was patient admitted / discharged? Hospital course, mention meds given and route, prescriptions, significant lab abnormalities, going to OR and other pertinent info. @ -Discharge. Patient presented emergency department for burn on her right hand over the first metacarpal with a total burn surface area of less than 0.25%. This is superficial partial-thickness burn. Appears ointment was applied and the wound was dressed with a nonadherent petrolatum dressing. Patient was given information for burn center follow-up. She will be be discharged home. Strict return precautions discussed. She is understanding agreeable with this plan. Patient stable at time of discharge. Case discussed with Dr. Tovar Undiagnosed new problem with uncertain prognosis? @ -No Drug Therapy requiring intensive monitoring for toxicity (Heparin, Nitro, Insulin, Cardizem)? @ -No Were any procedures done? @ -No Diagnosis/symptom? @ -Superficial partial burn Acute, or Chronic, or Acute on Chronic? @ -Acute Uncomplicated (without systemic symptoms) or Complicated (systemic symptoms)? @ -Uncomplicated Side effects of treatment? @ -No Exacerbation, Progression, or Severe Exacerbation? @ -No Poses a threat to life or bodily function? How? (Chest pain, [place], [place], pneumonia, PE, COPD, DKA, ARF, appy, cholecystitis, CVA, Diverticulitis, Homicidal, Suicidal, threat to staff... and all critical care pts) @ -No Disposition Clinical Impression: Superficial partial thickness burn of digit of hand Disposition: HOME SELF-CARE Condition: Stable Instructions (If sedation given, give patient instructions): Second-Degree Burn (ED) Additional Instructions: Please utilize the antibiotic ointment 3 times daily for the next 7 to 10 days. Keep the wound clean and dry. Follow-up with the burn center. Be on the look out for signs of any infection as we discussed. [facility] [place]: [phone] Is patient prescribed a controlled substance at d/c from ED?: No Referrals: Alistair Charles MD [Primary Care Provider] - 1-2 days
[2024-12-21] MEDS: MUPIROCIN 2% OINT 22 GM TUBE TOPICAL STA (18:49)
[2024-12-21 19:08] VITALS: BP 118/81; PULSE 66; RESP 16; TEMP 98
== END 2024-12-21 18:50 | disposition home or self-care (01) ==
LOC: EC 17:39
DX: T23.261A Burn of second degree of back of right hand, initial encounter (principal); T31.0 Burns involving less than 10% of body surface; F17.290 Nicotine dependence, other tobacco product, uncomplicated; X13.1XXA Other contact with steam and other hot vapors, initial encounter; Y99.0 Civilian activity done for income or pay
CPT/HCPCS: 16020; 99284

== ENCOUNTER → 2025-01-24 | Outpatient (CLI) | payer OTHER ==
--- NOTE | 2025-01-24 14:21 | CA ---
Exercise Stress Test Report Name: Lani Gonsalez Exam Date: 01/24/2025 07:24 Exam Location: [place] Stress Ht (in): 69 Wt (lb): 180 BSA: 1.98 Ordering Phys: Alistair Charles MD Referring Phys: CADE Technologist: DEBBIE SMART Age: 34 Gender: F : 1990 Procedure CPT: Indications: R07.9 CHEST PAIN ICD-10 Codes: Patient History: Medications: SUBOXONE,,,, PANTOPRAZOLE,,, Meds past 24 hrs: Pretest Chest Pain: STRESS TEST Noel Protocol Exercise Duration (min:sec): 07:[address] Depressions (mm): Angina Score: Azul Score: Resting HR (bpm): 73 Peak HR (bpm): 168 Resting BP (mmHg): 119 / 78 Peak BP (mmHg): 149 / 79 MPHR: 185 Target HR: 157 % MPHR: 91 METS: 8.9 Total Dose: Peak Dose: Atropine: Double Product: 14891 BP Response: Stress Termination: TARGET HR REACHED/MAX EXERTION Stress Symptoms: NO SYMPTOMS Stress Summary: ECG ANALYSIS Resting ECG: Stress ECG: CONCLUSIONS Patient underwent exercise stress EKG with a Noel protocol treadmill stress test. Patient exercised into Stage 3 for a total of 7 minutes and 7 seconds reaching a total of 8.9 METS. Patient's maximum heart rate was 168 which represented 90% age- predicted maximum heart rate. Stress EKG findings: At baseline patient's EKG showed normal sinus rhythm, normal axis, no significant ST or T wave abnormalities. At peak exercise, EKG showed no change from baseline. Conclusions: 1. Normal EKG response to exercise without evidence of inducible ischemia. 2. Fair exercise capacity. Dr. Parveen Arriaza DO (Electronically Signed) Final Date: 24 Jan 2025 14:20
== END | disposition home or self-care (01) ==
LOC: RADNMMAIN 06:54
PROVIDERS: ATTEND Family Medicine
DX: R07.9 Chest pain, unspecified (principal)
CPT/HCPCS: 93017